=== PATIENT | male | born 1965 | race Caucasian/White ===

== ENCOUNTER 2021-04-20 08:13 | Outpatient (CLI) | payer OTHER, SELFPAY ==
--- NOTE | ~2021-04-20 | US_ITS ---
EXAMINATION: US joint non vasc comp RT DATE: 04/20/2021 08:32 INDICATION: Right lower limb pain. TECHNIQUE: Multiple grayscale and Doppler ultrasound images of the right lower limb were obtained. COMPARISON: None FINDINGS: In the popliteal fossa, there is a small York's cyst with volume of approximately 2 mL. IMPRESSION: 1. Small York's cyst. Reviewed, dictated and finalized at location A. IMPRESSION: 1. Small York's cyst.
== END 2021-04-20 08:14 | disposition home or self-care (01) ==
LOC: CHSIMG 08:15
PROVIDERS: PCP Nurse Practitioner Family; Visit Provider Nurse Practitioner Family
DX: M25.561 Pain in right knee (principal)
CPT/HCPCS: 76881

== ENCOUNTER 2021-04-28 11:19 | Outpatient (CLI) | payer OTHER, SELFPAY | END 2021-04-28 11:20 | disposition home or self-care (01) | PROVIDERS: PCP Family Medicine; Visit Provider Nurse Practitioner Family | DX: Z53.9 Procedure and treatment not carried out, unspecified reason (principal) | CPT/HCPCS: 99199 ==

== ENCOUNTER 2021-05-01 12:24 | Outpatient (CLI) | payer OTHER, SELFPAY ==
--- NOTE | ~2021-05-01 | XR_ITS ---
EXAMINATION: XR knee RT 2V DATE: 05/01/2021 12:51 INDICATION: Right knee pain. TECHNIQUE: 2 views of right knee were obtained. COMPARISON: None. FINDINGS: Bone alignment is normal. No fracture. There is mild osteoarthritis of patellofemoral ariel rtment. No knee joint effusion. IMPRESSION: 1. Mild right knee osteoarthritis. Reviewed, dictated and finalized at location A.
== END 2021-05-01 12:25 | disposition home or self-care (01) ==
LOC: CHSIMG 12:26
PROVIDERS: PCP Nurse Practitioner Family; Visit Provider Nurse Practitioner Family
DX: M25.561 Pain in right knee (principal)
CPT/HCPCS: 73560

== ENCOUNTER 2021-05-15 03:09 | Emergency (ER) | payer OTHER, SELFPAY ==
--- NOTE | 2021-05-15 03:18 | ED.NAVMDI ---
HPI - Nausea/Vomiting/Diarrhea General Chief complaint: Nausea/Vomiting/Diarrhea Stated complaint: Vomiting Time Seen by Provider: 05/15/21 03:22 Source: patient Mode of arrival: EMS Limitations: no limitations History of Present Illness HPI Narrative: 55-year-old man brought to the emergency department today after calling EMS because of vomiting. patient states that he started vomiting on his way to work yesterday and has had at least 3 episodes. States he has been unable to keep down any fluids much less any solid food and states he is not feeling well. He denies any black stools, bloody stools, blood in his vomitus, fever, chills, cough or cold symptoms, abdominal pain, dysuria, hematuria, or sick exposures. He works in a warehouse. MD elicited complaint: nausea and vomiting Onset (ago): day(s) (1) Description of vomiting: food contents and watery Associated nausea: Yes Associated abdominal pain: No Location of pain: none Exacerbating factors: eating Relieving factors: none Associated symptoms: nausea/vomiting Related Data Allergies Allergy/AdvReac Type Severity Reaction Status Date / Time NKDA Allergy Mild Other Uncoded 05/09/21 17:25 Review of Systems Review of Systems: All systems reviewed & are unremarkable except as noted in HPI and below Constitutional: Constitutional: Denies chills, Denies fever(s) and Denies weakness Eyes: Eyes: Denies change in vision and Denies photophobia ENT: Denies nasal congestion and Denies sore throat Cardiovascular: Cardiovascular: Denies chest pain and Denies radiating jaw, neck or arm pain Respiratory: Respiratory: Denies cough and Denies dyspnea Gastrointestinal: Gastrointestinal: Denies abdominal pain, Denies nausea and Denies vomiting Genitourinary: Genitourinary: Denies dysuria and Denies urinary frequency Musculoskeletal: Musculoskeletal: Denies arthralgias and Denies joint swelling Integumentary/Breasts: Skin/Breast: Denies pruritus, Denies erythema and Denies rash Neurologic: Denies vertigo, Denies dizziness, Denies syncope, Denies focal weakness and Denies numbness Endocrine: Endocrine: Denies polydipsia and Denies polyuria Hematologic/Lymphatic: Hematologic/Lymphatic: Denies easy bleeding and Denies easy bruising Allergic/Immunologic: Allergic/Immunologic: Denies lip swelling, Denies throat swelling and Denies tongue swelling [facility] Past Medical History Medical History Osteoarthritis of right knee Synovial cyst of popliteal space [York], right knee Family History Family History Father Hypertension Social History Social History Smoking status: Never smoker Alcohol intake: current Substance use: never Additional living arrangements comments: lives with his Additional occupation/education comments: employed Gender identity (if verbalized by the patient): Male Exam Const: General: healthy appearing and alert Orientation/consciousness: patient oriented x3 Limitations: no limitations Other: Mild acute distress. HENMT: Head: normal to inspection Ears: external ears normal, TM's normal bilaterally and EAC's normal General nose exam: Normal nares present Face and sinus: normal facial exam Mouth: Yes moist mucous membranes Throat: posterior oropharynx normal Eyes: Cornea: corneas normal Pupils: Equal, round and reactive pupils present EOM: EOMs intact bilaterally Resp: Effort & Inspection: normal respiratory effort and not labored Auscultation: clear to auscultation bilaterally, no rales, no rhonchi and no wheezes Cardio: Rate: regular rate Rhythm: regular rhythm Heart sounds: no murmurs GI: GI Palp: Yes Soft to palpation and No Tenderness to palpation present (GI) Auscultation: normal bowel sounds Skin: General skin exam: normal color, no jaundice and
[2021-05-15 03:20] VITALS: BP 133/90; PULSE 74; RESP 20; TEMP 36.7; O2SAT 100
--- NOTE | 2021-05-15 03:29 | ECG_ITS ---
Measurements Intervals [place] Rate: 68 P: 55 MN: 146 QRS: 52 QRSD: 87 T: 66 QT: 366 QTc: 391 Interpretive Statements SINUS RHYTHM BASELINE ARTIFACT- I, III, AVL NORMAL ECG Electronically Signed On 05-15-2021 8:16:29 CDT by Pedro Singh D.O.
[2021-05-15 03:30] VITALS: BP 140/75
[2021-05-15 03:35] VITALS: BP 136/88; PULSE 77
[2021-05-15] MEDS: ONDANSETRON INJ 4 MG/2 ML VIAL IV PUSH (03:39)
[2021-05-15 03:54] LABS: Basophils Absolute Auto 0.05 K/mm3 (0.00-0.10); Basophils Percent Auto 0.4 % (0.0-1.0); Eosinophils Absolute Auto 0.11 K/mm3 (0.02-0.50); Eosinophils Percent Auto 0.9 % (1.0-6.0); Hematocrit 45.2 % (40.0-54.0); Hemoglobin 15.3 g/dL (14.0-18.0); Immature Granulocyte Absolute 0.06 K/mm3 (0.00-0.00); Immature Granulocyte Percent A 0.5 % (0.0-0.0); Lymphocytes Absolute Auto 1.14 K/mm3 (1.10-4.50); Lymphocytes Percent Auto 9.7 % (18.0-42.0); Mean Corpuscular HGB Conc 33.8 g/dL (32.0-36.0); Mean Corpuscular Volume 85.6 fL (78.0-102.0); Mean Platelet Volume 8.9 fl (8.7-11.0); Monocytes Absolute Auto 0.47 K/mm3 (0.10-0.90); Neutrophils Absolute Auto 9.9 K/mm3 (1.7-7.2); Neutrophils Percent Auto 84.5 % (50.0-70.0); Platelet Count Result 228 K/mm3 (150-420); Red Blood Count 5.28 M/mm3 (4.70-6.10); Red Cell Distribution Width 13.8 % (11.6-14.4); White Blood Count 11.8 K/mm3 (4.8-10.8)
[2021-05-15] MEDS: PANTOPRAZOLE SODIUM IV 40 MG VIAL IV PUSH (04:07)
[2021-05-15 04:13] LABS: Alanine Aminotransferase 33 U/L (16-63); Albumin Level 3.7 g/dL (3.4-5.0); Alkaline Phosphatase 67 U/L (46-116); Anion Gap 8 mmol/L (8-16); Aspartate Amino Transferase 14 U/L (15-37); Bilirubin,Total 0.9 mg/dL (0.00-1.00); Blood Urea Nitrogen 13 mg/dL (7-18); Calcium 8.7 mg/dL (8.5-10.1); Carbon Dioxide 29 mmol/L (21-32); Chloride 103 mmol/L (98-108); Estimated CRCL calculation 92 ml/min; Estimated Glomerular Filt Rate > 60; Glucose 113 mg/dL (70-99); Lipase 72 U/L (73-393); Osmolality Calculated 291 mOsm/kg (285-295); Potassium 3.7 mmol/L (3.5-5.1); Sodium 140 mmol/L (136-145); Total Protein 7.2 g/dL (6.4-8.2)
[2021-05-15 04:18] LABS: Acetaminophen < 2 ug/mL (10-30); Salicylate < 0.2 mg/dL (2.8-20.0)
[2021-05-15] MEDS: SODIUM CHLORIDE 0.9% IV 1,000 ML 999 ML IV CONT (04:27)
[2021-05-15 04:41] LABS: Add Urine Microscopic? YES; Appearance Urine Clear (Clear); Bilirubin Urine Negative (Negative); Blood Urine Negative (Negative); Color Urine Light Yellow (Yellow); Glucose Urine UA Negative (Negative); Ketones Urine 1+ (Negative); Leukocyte Esterase Ur Negative LEU/UL (Negative); Nitrate Urine Negative (Negative); Protein Urine Negative (Negative); Urobilinogen Urine 0.2 mg/dL (0.2-1.0)
[2021-05-15 04:47] LABS: Amphetamine Screen Urine Negative (Negative); Bacteria Urine None seen /hpf; Barbiturate Screen Urine Negative (Negative); Benzodiazepines Screen Urine Negative (Negative); Cannabinoid Screen Urine Negative (Negative); Cocaine Screen Urine Negative (Negative); Methadone Screen Urine Negative (Negative); Opiate Screen Urine Negative (Negative); Phencyclidine Screen Urine Negative (Negative); RBC Urine None seen /hpf (0-2); Squamous Epithelial Cell Urine None seen /hpf (Few); WBC Urine None seen /hpf (0-3)
[2021-05-15 05:13] VITALS: BP 140/78; PULSE 78; RESP 18; TEMP 36.6; O2SAT 99
== END 2021-05-15 05:19 | disposition home or self-care (01) ==
PROVIDERS: Emergency Provider Emergency Medicine; PCP Nurse Practitioner Family
DX: R11.2 Nausea with vomiting, unspecified (principal)
CPT/HCPCS: 36415; 80053; 80307; 81001; 83690; 85025; 93005; 96361; 96374; 96375; 99283; 99284; C9113; J2405; J7030

== ENCOUNTER 2021-10-20 10:51 | Emergency (ER) | payer OTHER, SELFPAY ==
--- NOTE | ~2021-10-20 | XR_ITS ---
EXAMINATION: XR knee RT 3V EXAM DATE: 10/20/2021 12:06 INDICATION: Posterior Knee Pain/No Trauma . TECHNIQUE: Three projections of the right knee. Comparison is made to prior examination from 05/01/2021 . FINDINGS: No evidence osteochondral defect or joint body in the right knee joint. There are no acut e fractures or dislocations identified. There is no subcutaneous gas. Possible anterior subcutaneou s swelling. Some edema in Hoffa's fat pad. No joint effusion. There are no radiopaque foreign bodies. IMPRESSION: 1. Right knee exam without acute osseous findings. 2. Mild edema. Reviewed, dictated and finalized at location A. ANICAL ENGINEERING DRAFTSPERSON
[2021-10-20 11:40] VITALS: BP 162/86; PULSE 80; RESP 18; TEMP 36.6; O2SAT 99
--- NOTE | 2021-10-20 11:54 | ED.GENADULT ---
HPI - General Adult General Chief complaint: Extremity Injury, Lower Stated complaint: Not feeling well Time Seen by Provider: 10/20/21 11:54 Source: patient Mode of arrival: ambulatory Limitations: other ( Patient has a developmental delay.) History of Present Illness HPI narrative: 56-year-old male with developmental delay, recurrent right knee pain and swelling with questionable knee infection 6 months ago presents to the ER with -- right knee pain and swelling. The patient has been working long hours and his work involves lifting heavy things. No knee trauma. -- One episode of vomiting. No abdominal pain or diarrhea. Onset (ago): minute(s) ( Three days.) Location: lower extremity ( Right knee) Radiation: non-radiation Severity: moderate Severity scale (1-10): 5 Quality: aching Pain Consistency: constant Relieving factors: immobilization Exacerbating factors: movement Associated symptoms: nausea/vomiting Treatments prior to arrival: NSAID Related Data Allergies Allergy/AdvReac Type Severity Reaction Status Date / Time NKDA Allergy Mild Other Uncoded 10/20/21 11:53 Review of Systems Review of Systems: All systems reviewed & are unremarkable except as noted in HPI and below Constitutional: Constitutional: Reports as per HPI Eyes: Eyes: Reports as per HPI ENT: Reports system reviewed and no additional complaints, except as documented Cardiovascular: Cardiovascular: Reports as per HPI and Reports no additional cardiovascular complaints Respiratory: Respiratory: Reports as per HPI and Reports no additional respiratory complaints Gastrointestinal: Gastrointestinal: Reports as per HPI and Reports vomiting Musculoskeletal: Musculoskeletal: Reports no additional musculoskeletal complaints Integumentary/Breasts: Skin/Breast: Reports system reviewed and no additional complaints, except as docu Neurologic: Reports system reviewed and no additional complaints, except as documented Psychiatric: Psychiatric: Reports no additional psychiatric complaints Endocrine: Endocrine: Reports no additional endocrine complaints Hematologic/Lymphatic: Hematologic/Lymphatic: Reports no additional hematologic/lymphatic complaints Allergic/Immunologic: Allergic/Immunologic: Reports no additional allergic/immunologic complaints [facility] Past Medical History Medical History Osteoarthritis of right knee Synovial cyst of popliteal space [York], right knee Family History Family History Father Hypertension Social History Social History Smoking status: Never smoker Alcohol intake: current Alcohol use details: occasionally Substance use: never Additional living arrangements comments: lives with his Additional occupation/education comments: employed Gender identity (if verbalized by the patient): Male Exam Const: General: cooperative and healthy appearing HENMT: Head: normal to inspection Ears: hearing grossly normal bilaterally General nose exam: Normal external nose present Face and sinus: normal facial exam Mouth: Yes Normal oral and palatal mucosa present and Yes other ( extensive dental caries) Teeth and gingiva: caries Throat: posterior oropharynx normal Eyes: General: appearance normal, both eyes and all related structures EOM: EOMs intact bilaterally Neck: Neck: normal visual inspection Chest: Chest palpation & inspection: normal inspection of the chest Resp: Effort & Inspection: normal respiratory effort Cardio: Jugular venous distension: no JVD Palpation: normal PMI Rate: regular rate Rhythm: regular rhythm Heart sounds: S1 normal heart sound present and S2 normal heart sound present GI: Inspection: normal to inspection : General: Yes bimanual renal exam normal bilaterally Back/Spine/Pelvis: Back: no
[2021-10-20 12:14] LABS: Hemoglobin 14.9 g/dL (14.0-18.0); Mean Corpuscular HGB Conc 33.9 g/dL (32.0-36.0); Mean Corpuscular Hemoglobin 29.8 pg (27.0-31.0); Mean Platelet Volume 8.5 fl (8.7-11.0); Platelet Count Result 161 K/mm3 (150-420); Red Cell Distribution Width 13.1 % (11.6-14.4); White Blood Count 10.4 K/mm3 (4.8-10.8)
[2021-10-20 12:36] LABS: Alanine Aminotransferase 52 U/L (16-63); Albumin Level 3.6 g/dL (3.4-5.0); Alkaline Phosphatase 111 U/L (46-116); Anion Gap 7 mmol/L (8-16); Aspartate Amino Transferase 23 U/L (15-37); Bilirubin,Total 1.3 mg/dL (0.00-1.00); Blood Urea Nitrogen 11 mg/dL (7-18); Calcium 8.7 mg/dL (8.5-10.1); Carbon Dioxide 29 mmol/L (21-32); Chloride 101 mmol/L (98-108); Estimated CRCL calculation 85 ml/min; Estimated Glomerular Filt Rate > 60; Glucose 122 mg/dL (70-99); Osmolality Calculated 284 mOsm/kg (285-295); Potassium 3.6 mmol/L (3.5-5.1); Sodium 137 mmol/L (136-145); Total Protein 7.4 g/dL (6.4-8.2)
[2021-10-20 12:39] LABS: Band Neutrophils Percent 2 % (0-6); Basophils Percent Manual 0 % (0-1); Eosinophils Absolute Manual 0.41 K/mm3 (0.02-0.5); Eosinophils Percent Manual 4 % (1-6); Lymphocytes Absolute Manual 0.52 K/mm3 (1.1-4.5); Lymphocytes Percent Manual 5 % (18-44); Monocytes Absolute Manual 0.52 K/mm3 (0.1-0.90); Monocytes Percent Manual 5 % (3-9); Neutrophils Absolute Manual 8.94 K/mm3 (1.3-6.7); Neutrophils Percent Manual 84 % (46-73); Platelet Estimate Adequate (Adequate); Total Cells Counted 100
[2021-10-20] MEDS: KETOROLAC 30 MG/ML VIAL (*BKC) IM (13:04)
== END 2021-10-20 13:13 | disposition home or self-care (01) ==
PROVIDERS: Emergency Provider Internal Medicine Critical Care Medicine; PCP Nurse Practitioner Family
DX: M25.561 Pain in right knee (principal)
CPT/HCPCS: 36415; 73562; 80053; 85025; 96372; 99283; J1885

== ENCOUNTER 2021-10-24 10:46 | Outpatient (CLI) | payer OTHER, SELFPAY ==
--- NOTE | ~2021-10-24 | XR_ITS ---
XR abdomen/kub 1V 10/24/2021 11:17 Indication: Noninfected gastroenteritis and colitis. Procedure: KUB Comparison: No prior studies for comparison. Findings: Bowel gas pattern is nonobstructive. Moderate colonic fecal loading. There is a right renal stone measuring approximately 8 mm. Lung bases are unremarkable. No acute osseous abnormality. Impression: 1: Right nephrolithiasis. Reviewed, dictated and finalized at location A. ING ROOM HELPER Impression: 1: Right nephrolithiasis.
[2021-10-24 11:03] LABS: Hematocrit 46.7 % (40.0-54.0); Hemoglobin 15.5 g/dL (14.0-18.0); Mean Corpuscular HGB Conc 33.2 g/dL (32.0-36.0); Mean Corpuscular Hemoglobin 29.3 pg (27.0-31.0); Mean Corpuscular Volume 88.3 fL (78.0-102.0); Mean Platelet Volume 8.3 fl (8.7-11.0); Platelet Count Result 207 K/mm3 (150-420); Red Blood Count 5.29 M/mm3 (4.70-6.10); Red Cell Distribution Width 12.8 % (11.6-14.4); White Blood Count 12.4 K/mm3 (4.8-10.8)
[2021-10-24 11:27] LABS: Band Neutrophils Percent 0 % (0-6); Eosinophils Absolute Manual 0.49 K/mm3 (0.02-0.5); Eosinophils Percent Manual 4 % (1-6); Lymphocytes Absolute Manual 1.48 K/mm3 (1.1-4.5); Lymphocytes Percent Manual 12 % (18-44); Monocytes Absolute Manual 0.62 K/mm3 (0.1-0.90); Monocytes Percent Manual 5 % (3-9); Neutrophils Absolute Manual 9.79 K/mm3 (1.3-6.7); Neutrophils Percent Manual 79 % (46-73); Platelet Estimate Adequate (Adequate); Total Cells Counted 100
--- NOTE | 2021-10-24 11:40 | PC.NURSE ---
Here for OP IV fluids
[2021-10-24 11:51] LABS: Alanine Aminotransferase 103 U/L (16-63); Albumin Level 3.3 g/dL (3.4-5.0); Alkaline Phosphatase 169 U/L (46-116); Anion Gap 9 mmol/L (8-16); Aspartate Amino Transferase 26 U/L (15-37); Bilirubin,Total 0.8 mg/dL (0.00-1.00); Blood Urea Nitrogen 16 mg/dL (7-18); Carbon Dioxide 30 mmol/L (21-32); Chloride 99 mmol/L (98-108); Estimated Glomerular Filt Rate > 60; Glucose 111 mg/dL (70-99); Magnesium 2.1 mg/dL (1.8-2.4); Osmolality Calculated 288 mOsm/kg (285-295); Potassium 4.4 mmol/L (3.5-5.1); Sodium 138 mmol/L (136-145); Total Protein 7.6 g/dL (6.4-8.2)
[2021-10-24] MEDS: SODIUM CHLORIDE 0.9% IV 1,000 ML 250 ML IVPB (11:58)
[2021-10-24] MEDS: ONDANSETRON INJ 4 MG/2 ML VIAL IV PUSH (11:59)
--- NOTE | 2021-10-24 12:16 | PC.NURSE ---
Ice chips given
--- NOTE | 2021-10-24 13:59 | PC.NURSE ---
fluids continue, no emesis, unable to sleep, call light in reach
== END 2021-10-24 10:47 | disposition home or self-care (01) ==
LOC: CHSLAB 11:21 → CHSTREATRM 11:32
PROVIDERS: PCP Nurse Practitioner Family; Visit Provider Nurse Practitioner Family
DX: K52.9 Noninfective gastroenteritis and colitis, unspecified (principal); N39.0 Urinary tract infection, site not specified; R82.90 Unspecified abnormal findings in urine
CPT/HCPCS: 36415; 74018; 80053; 83735; 85025; 87077; 87086; 87088; 87186; 96360; 96361; 96374; J2405; J7030

== ENCOUNTER 2021-10-29 08:31 | Outpatient (CLI) | payer OTHER, SELFPAY ==
--- NOTE | ~2021-10-29 | US_ITS ---
EXAMINATION: US abdomen limited EXAM DATE: 10/29/2021 08:59 INDICATION: R74.8 - Abnormal levels of other serum enzymes TECHNIQUE: Multiple grayscale and Doppler images of the abdomen right upper quadrant were obtained (b y a technologist who performed the scan) and subsequently reviewed. There is no prior study for candelaria abraham. FINDINGS: The pancreatic head and body are normal in appearance. The pancreatic tail is not visualized. The l iver has normal echogenicity and contour. There are no focal liver lesions identified. There is no evidence of intrahepatic biliary duct dilation. Portal venous flow was seen in the hepatopedal, nor mal direction and has normal Doppler waveform. No right-sided hydronephrosis. Common bile duct measures 3 mm, which is normal. The gallbladder wall is normal in thickness, with ex pected amount of distention. No sonographic evidence of pericholecystic fluid. There is no cholelit hiases. Technologist performing exam reports patient did not demonstrate sonographic Hamlin's sign. Please note that this sign is less reliable in patients who have received pain medication. IMPRESSION: 1. Unremarkable abdominal ultrasound exam. Reviewed, dictated and finalized at location A. LLIGENCE DIRECTOR
== END 2021-10-29 08:32 | disposition home or self-care (01) ==
LOC: CHSIMG 08:33
PROVIDERS: PCP Family Medicine; Visit Provider Nurse Practitioner Family
DX: R74.8 Abnormal levels of other serum enzymes (principal)
CPT/HCPCS: 76705

== ENCOUNTER 2023-04-16 16:32 | Outpatient (CLI) | payer OTHER, SELFPAY ==
--- NOTE | ~2023-04-16 | XR_ITS ---
EXAMINATION: XR elbow LT 2V DATE: 04/16/2023 16:54 INDICATION: Mechanical injury one half weeks prior presenting with anterior left elbow pain TECHNIQUE: Anteroposterior, two oblique and lateral views of the left elbow were obtained. COMPARISON: None. FINDINGS: Alignment is normal. No fracture. Joint spaces are normal. There is mild displacement of the anterior but not the posterior fat pad suggesting a small elbow joint effusion. Mild soft tissue swelling pos terior to the proximal left forearm. IMPRESSION: 1. Possible small left elbow joint effusion. No osseous abnormality. Reviewed, dictated and finalized at location A.
== END 2023-04-16 16:33 | disposition home or self-care (01) ==
LOC: CHSIMG 16:34
PROVIDERS: PCP Nurse Practitioner Family; Visit Provider Nurse Practitioner Family
DX: M25.522 Pain in left elbow (principal)
CPT/HCPCS: 73070

== ENCOUNTER 2024-12-14 09:17 | Outpatient (CLI) | payer OTHER, SELFPAY ==
--- NOTE | 2024-12-16 13:38 | WPDHOLTEREM ---
Holter/Event Monitor Holter/Event Monitor Date of procedure: 12/14/24 Holter/Event Procedure: 24 Hr Holter Monitor Conclusion: 1. 24 hour holter monitor on 12/14/24. 2. Underlying rhythm is sinus rhythm. HR range 43-141 bpm; average HR 75 bpm. HR at 43 bpm was at 05:05. HR at 141 bpm was at 11:13. 3. There are 7 premature supraventricular complexes and 1 supraventricular couplet. No supraventricular tachycardia. 4. There are 4 premature ventricular complexes. No ventricular tachycardia. 5. No significant pauses greater than 2 seconds. 6. No symptoms available for correlation.
== END 2024-12-14 09:18 | disposition home or self-care (01) ==
LOC: CHSCARD 09:19
PROVIDERS: PCP Family Medicine; Visit Provider Family Medicine
DX: R55 Syncope and collapse (principal)
CPT/HCPCS: 93225; 93226

== ENCOUNTER 2024-12-16 11:25 | Outpatient (CLI) | payer OTHER, SELFPAY ==
--- NOTE | 2024-12-16 11:29 | ECHO_ITS ---
Patient Info Name: Bryce Tristan Age: 59 years : 1965 Gender: Male Ht: 67 in Wt: 175 lbs BSA: 1.95 m2 HR: 97 bpm BP: 139 / 87 mmHg Heart Rhythm: Sinus Rhythm Technical Quality: Excellent Exam Date: 12/16/2024 12:32 PM Exam Location: Echo Lab Patient Status: Outpatient Admit Date: 12/16/2024 Staff Ordering Physician: Ander Macias DO Dictating Transcribing Machine Servicer: Zoey Yang RDCS Attending Provider: Ander Macias DO Referring Physician: Colleen SERRATO; Exam Type: CA echo doppler color flow Study Info Complete two-dimensional, color flow and Doppler transthoracic echocardiogram is performed. Summary 1. Complete two-dimensional, color flow and Doppler transthoracic echocardiogram is performed. 2. Left ventricular chamber dimension is normal. 3. Left ventricular systolic function is normal, estimated at 65-70%. 4. The left ventricular diastolic function is normal. 5. E/e' 9 is minimally elevated. 6. There is trace mitral valve regurgitation. 7. There is trace tricuspid valve regurgitation. 8. Mild pulmonary hypertension, estimated pulmonary arterial systolic pressure is 41 mmHg. 9. There is trace pulmonic regurgitation. Left Ventricle E/e' 9 is minimally elevated. Left ventricular chamber dimension is normal. Left ventricular systolic function is normal, estimated at 65-70%. The left ventricular diastolic function is normal. Right Ventricle Right ventricular systolic function is normal and with normal TAPSE 2.4 cm. Right ventricular chamber dimension is normal. Left Atria Left atrial chamber dimension is normal. Right Atria Right atrial chamber dimension is normal. Aortic Valve The aortic valve is trileaflet. There is no aortic valve stenosis. There is no aortic valve regurgitation. Pulmonic Valve There is trace pulmonic regurgitation. Mitral Valve There is no mitral valve stenosis. There is trace mitral valve regurgitation. Tricuspid Valve There is trace tricuspid valve regurgitation. Mild pulmonary hypertension, estimated pulmonary arterial systolic pressure is 41 mmHg. Pericardium/Pleural There is no pericardial effusion. Inferior Vena Cava Normal inferior vena cava with >50% collapse upon inspiration consistent with normal right atrial pressure, 5 mmHg. Aorta The aortic root size at the sinus of Valsalva is normal. Left Ventricular Outflow Tract Name Value Normal LVOT 2D LVOT Diameter 2.2 cm LVOT Doppler LVOT Peak Velocity 91 cm/s LVOT Peak Gradient 3 mmHg LVOT Mean Gradient 0 mmHg LVOT VTI 17 cm LVOT VTI/AV VTI Ratio 0.8 LVOT Stroke Volume 62 ml Pulmonic Valve Name Value Normal PV Doppler PV Peak Velocity 112 cm/s PV Peak Gradient 5 mmHg PV Regurgitation Doppler [place] Peak End Diastolic Velocity 96 cm/s Mitral Valve Name Value Normal MV Doppler MV Peak Gradient 2 mmHg MV Mean Gradient 1 mmHg MV Decel [place] 247 cm/s2 MV PHT 66 ms MV Area (PHT) 3.3 cm2 4.0-5.0 MV Area (Cont Eq VTI) 2.9 cm2 MV Diastolic Function MV E Peak Velocity 56 cm/s MV A Peak Velocity 71 cm/s MV E/A 0.8 MV Decel Time 228 ms Tricuspid Valve Name Value Normal TV Regurgitation Doppler TR Peak Velocity 301 cm/s TR Peak Gradient 36 mmHg Estimated PAP/RSVP RA Pressure 5 mmHg <=5 PA Systolic Pressure 41 mmHg <36 RV Systolic Pressure 41 mmHg <36 Aortic Valve Name Value Normal AV Doppler AV Peak Velocity 104 cm/s AV Peak Gradient 4 mmHg AV Mean Gradient 3 mmHg AV VTI 22 cm AV Area (Cont Eq VTI) 2.9 cm2 >=3.0 AV Area (Cont Eq Kong) 3.2 cm2 AV V1/V2 Ratio 0.87 AV Regurgitation 2D LVOT Area 3.6 cm2 Ventricles Name Value Normal LV Dimensions 2D/MM IVS Diastolic Thickness (2D) 0.7 cm 0.6-1.0 LVID Diastole (2D) 5.3 cm 4.2-5.8 LVIW Diastolic Thickness (2D) 0.8 cm 0.6-1.0 LVID Systole (2D) 3.8 cm 2.5-4.0 LVOT Diameter 2.2 cm LV Mass (2D Cubed) 133.62 g 88.00-224.00 LV Mass Index (2D Cubed) 68 g/m2 49-115 Relative Wall Thickness (2D) 0.30 LV Fractional Shortening/Ejection Fraction 2D/MM LV Fractional Shortening (2D) 28 % 25-43 LV EF (2D Teicholz) 53 % 52-72 LV Diastolic Volume (4C MOD) 162 ml LV EF (4C MOD) 57 % LV Diastolic Volume (2C MOD) 130 ml LV EF (2C MOD) 62 % LV Diastolic Volume (BP MOD) 149 ml 62-150 LV Diastolic Volume Index (BP MOD) 76 ml/m2 34-74 LV Systolic Volume (BP MOD) 62 ml 21-61 LV Systolic Volume Index (BP MOD) 32 ml/m2 11-31 LV EF (BP MOD) 59 % 52-72 LV Diastolic Length (4C) 8.5 cm LV Systolic Length (4C) 7.3 cm LV Stroke Volume (4C MOD) 92 ml LV CO (BP MOD) 5.9 l/min LV CI (BP MOD) 3.0 l/min/m2 Atria Name Value Normal LA Dimensions LA Volume (4C A-L) 54 ml LA Volume (BP A-L) 48 ml RA Dimensions RA Area (4C) 19.1 cm2 <=18.0 Report Signatures
== END 2024-12-16 11:26 | disposition home or self-care (01) ==
LOC: CHSIMG 11:27
PROVIDERS: PCP Family Medicine; Visit Provider Family Medicine
DX: I50.9 Heart failure, unspecified (principal); I27.20 Pulmonary hypertension, unspecified
CPT/HCPCS: 93306

== ENCOUNTER 2025-01-18 10:39 | Outpatient (CLI) | payer OTHER, SELFPAY ==
--- NOTE | ~2025-01-18 | XR_ITS ---
Cervical Spine: AP, lateral, open-mouth views Clinical History: Pain Findings: The normal lordotic curve is maintained. No fracture or subluxation seen. There is moderate degenerative disc narrowing at C4-C5. There is advanced degenerative disc narrowing at C6-C7. There are mild to moderate facet joint degenerative changes.. Pre-vertebral soft tissues are unremarkable. Impression: Moderate degenerative spondylosis overall, as above. Reviewed, dictated and finalized at location . CT CONTROL AIDE Impression: Moderate degenerative spondylosis overall, as above.
--- OUTSIDE RECORDS SUMMARY | 2025-01-18 10:53 | XMS_ITS | Referral Summary ---
Author Organization [facility] Address [address] [place] [address] Care Team Providers Care Torpedo Man Name Role Phone Ander Macias DO Unavailable [phone] Ander Macias DO Primary Care Provider Encounters Date Type Department Care Team Description 01/04/2025 8:20 AM SATURATOR OPERATOR Office Visit [facility] - [facility] ENT [address] [facility] 11th [place] [address] [place] [address] Vikram Chan MD Nasal obstruction (Primary Dx); Nasal valve collapse; Nasal septal deviation; Open fracture of nasal septum, sequela; Late effect of closed fracture of facial bone (CMS/HCC) (HCC); Closed fracture of nasal bone, sequela; Hypertrophy of inferior nasal turbinate 12/06/[address] [facility] [facility] [address] [facility] 11th [place] [address] [place] [phone] Ita Ward MS 11/17/2024 Telephone [facility] [address] [place] [address] 6th [place] [address] [place] [address] Hubert Rodgers MD Scheduling Appointments; Follow-up 11/16/2024 Telephone [facility] [address] [place] [address] 1st [place] [address] Marleni Frank MD Patient Education 11/13/2024 2:51 PM SATURATOR OPERATOR - 11/16/2024 3:35 PM SATURATOR OPERATOR Hospital Encounter [facility] [address] [place] [address] Samantha Sharma MD Sensing, [place] Enrique DO Closed fracture of cervical vertebra, unspecified cervical vertebral level, initial encounter (HCC) (Primary Dx); Fall, initial encounter; Closed fracture of facial bone due to fall, initial encounter ([facility]) Discharge Disposition: Discharge to home or self care 11/13/2024 2:08 PM SATURATOR OPERATOR - 11/13/2024 11:59 PM SATURATOR OPERATOR Hospital Encounter [facility], Room R Discharge Disposition: Discharge to home or self care 11/13/2024 10:32 AM SATURATOR OPERATOR - 11/13/2024 11:59 PM SATURATOR OPERATOR Hospital Encounter [facility] Emergency, Room R Discharge Disposition: Discharge to home or self care 11/13/2024 Ophth Exam [facility] [address] [place] [address] [place] [address] Vikram Shelby MD 11/13/2024 10:52 AM SATURATOR OPERATOR - 11/13/2024 2:09 PM [facility] Emergency [facility] Emergency Department [address] [place] [address] Tim Prater MD Closed nondisplaced fracture of third cervical vertebra, unspecified fracture morphology, initial encounter ([facility]) (Primary Dx); Open fracture of facial bone due to fall, initial encounter ([facility]); Vasovagal syncope Discharge Disposition: Discharge to not defined facility from Last 3 Months Allergies No known active allergies Medications acetaminophen (TYLENOL) 325 mg tabletIndicatio ns:Pain Take 2 tablets (650 mg total) by mouth every 6 (six) hours 30 tablet Active Additional Information Patient not taking.Reported on 01/04/2025 polyethylene glycol (MIRALAX) 17 gram/dose bulk powderIndicatio ns:constipation Take 17 g by mouth daily 510 g 4 Active senna-docusate (PERICOLACE) 8.6-50 mgIndications:c onstipation Take 1 tablet by mouth 2 (two) times a day 30 tablet Active Additional Information Patient not taking.Reported on 01/04/2025 sodium chloride (OCEAN) 0.65 % nasal spray Administer 2 sprays into each nostril 4 (four) times a day 15 mL Active Additional Information Patient not taking.Reported on 01/04/2025 oxyCODONE (ROXICODONE) 5 mg immediate release tabletIndicatio ns:Pain Take 1 tablet (5 mg total) by mouth every 4 (four) hours as needed for pain 10 tablet Active Additional Information Patient not taking.Reported on 01/04/2025 Active Problems Problem Noted Date Diagnosed Date Discharge planning issues 11/15/2024 Assessment & Plan (11/16/2024 10:15 AM SATURATOR OPERATOR): 11/15 MRI 11/16 Patient is medically stable for discharge, /CM updated. Discharge pending mobile rx and ride from family Health Insurance Coverage: [employer] Prescription Coverage: Yes Pharmacy: No Pharmacies ListedCM intake pending Needs assistance with community resources 2023 Assessment & Plan (11/15/2024 12:18 PM SATURATOR OPERATOR): 11/15 tasked for PCP in outpatient for TTE. Syncope most liekly vasovagal but will look at cardiac etiologies. Orbital fracture ([facility]) 11/14/2024 Assessment & Plan (11/15/2024 6:45 AM SATURATOR OPERATOR): - Imaging Fractures: left lateral orbital wall, bilateral nasal bone, anterior nasal septum, right nasal maxillary suture, anterior wall of the right maxillary sinus, comminuted ethmoidal lamina w/ intra orbital air -Ophthalmology consult in the ED, exam reassuring for intact vision, no globe injuries requiring urgent repair, no evidence of entrapment, no evidence of orbital compartment syndrome. - HOB elevation, open-mouth sneezing, no nose-blowing - cool compress / ice pack on periorbital region x 5-10 minutes q30 minutes Follow Up: Outpatient evaluation in ophthalmology clinic in 1-2 weeks for repeat dilated exam. In the meantime, return precautions for worsening vision, increased pain, or N/V. - Notify ophthalmology of any new or worsening eye or visual symptoms including worsening vision, eye pain, redness, photosensitivity, discharge, or new flashes of light or showers of floaters Fracture of cervical vertebrae, multiple (CMS/HC C) 11/14/2024 Overview (11/14/2024): Anterioinferior corner fractures C3 and C5 VB Assessment & Plan (11/15/2024 12:13 PM SATURATOR OPERATOR): #Anterior inferior corner fractures of C3 and C5 vertebral bodies -Orthopedic spine consult - Nano Marie cervical collar at all times Follow Up not yet scheduled but will be at [facility] Facial fracture 11/14/2024 Assessment & Plan (11/15/2024 6:47 AM SATURATOR OPERATOR): - Imaging Fractures: left lateral orbital wall, bilateral nasal bone, anterior nasal septum, right nasal maxillary suture, anterior wall of the right maxillary sinus, comminuted ethmoidal lamina w/ intra orbital air - ENT face c/s - Elevate HOB - No nose blowing, no straining, no heavy lifting greater than 10lbs, open mouth sneezing. - Scheduled stool softeners Patient Discharge Instructions: Multiple Facial fractures You were seen for a multiple facial fracture You will need to follow up in the ENT facial plastics clinic within 1 week to discuss possible operative repair of your fracture. Until you see us in clinic or the operating room, please - Take your full course of antibiotics (typically Augmentin x 7 days) if prescribed - Do not perform any heavy lifting (>10 lbs), and do not strain. Use stool softeners as needed. You may be prescribed these or obtain these over the counter at your local pharmacy. - Do NOT blow your nose. You may use nasal saline spray or ocean spray as needed. - Sneeze with your mouth open - Use tylenol 650 mg every 6 hours to help with pain. You can alternate between tylenol and ibuprofen if you need additional pain control ENT Facial Plastics Clinic: Call [phone] to make an appointment. Our offices are located at [facility] [address] [facility] [address] [place] [address] OR [facility] [address] [place] [address] Fall 11/14/2024 Assessment & Plan (11/16/2024 6:27 AM SATURATOR OPERATOR): - Syncopal fall after donating blood today, plus HS, plus LOC. Endorses history of lightheadedness - OSVS 11/15 negative - TTE outpatient Fall, initial encounter 11/13/2024 Social History Tobacco Use Types Packs/Day Years Used Date Smoking Tobacco: Never Tobacco Cessation:Counseling Given: Not Answered Personal Safety Answer Date Recorded Have you ever been in or are you currently in a harmful physical or emotional relationship or is someone making you feel afraid or unsafe? Denies 11/14/2024 Sex and Gender Information Value Date Recorded Sex Assigned at Not on file Legal Sex Male 10:00 AM SATURATOR OPERATOR Gender Identity Not on file Sexual Orientation Not on file Last Filed Vital Signs Vital Sign Reading Time Taken Comments Blood Pressure 117/74 11/16/2024 12:09 PM SATURATOR OPERATOR Pulse 89 11/16/2024 12:09 PM SATURATOR OPERATOR Temperature 36.7 C (98.1 F) 11/16/2024 12:09 PM SATURATOR OPERATOR Respiratory Rate 18 11/16/2024 12:09 PM SATURATOR OPERATOR Oxygen Saturation 100% 11/16/2024 12:09 PM SATURATOR OPERATOR Inhaled Oxygen Concentration - - Weight 75.8 kg (167 lb) 11/14/2024 2:30 AM SATURATOR OPERATOR Height 172.7 cm (5' 7.99 ) 11/14/2024 2:30 AM CS T Body Mass Index 25.4 11/14/2024 2:30 AM SATURATOR OPERATOR Plan of Treatment Not on file Procedures Procedure Name Priority Date/Time Associated Diagnosis Comments EGFR Routine 11/15/2024 10:07 PM SATURATOR OPERATOR BASIC METABOLIC PANEL Routine 11/15/2024 10:07 PM SATURATOR OPERATOR CBC WITHOUT DIFFERENTIAL Routine 11/15/2024 10:07 PM SATURATOR OPERATOR MAGNESIUM Routine 11/15/2024 10:07 PM SATURATOR OPERATOR PHOSPHORUS Routine 11/15/2024 10:07 PM SATURATOR OPERATOR XR SCOLIOSIS AP LAT ED Urgent/IP Urgent 11/15/2024 8:40 AM SATURATOR OPERATOR EGFR Routine 11/14/2024 10:11 PM SATURATOR OPERATOR BASIC METABOLIC PANEL Routine 11/14/2024 10:11 PM SATURATOR OPERATOR CBC WITHOUT DIFFERENTIAL Routine 11/14/2024 10:11 PM SATURATOR OPERATOR MAGNESIUM Routine 11/14/2024 10:11 PM SATURATOR OPERATOR PHOSPHORUS Routine 11/14/2024 10:11 PM SATURATOR OPERATOR URINALYSIS AND REFLEX TO MICROSCOPIC AND CULTURE Routine 11/14/2024 4:39 PM SATURATOR OPERATOR XR ABDOMEN AP 1 VIEW ED Urgent/IP Urgent 11/14/2024 1:45 PM SATURATOR OPERATOR MRI CERVICAL SPINE WO CONTRAST ED 11/14/2024 1:56 AM SATURATOR OPERATOR URINALYSIS AND REFLEX TO MICROSCOPIC AND CULTURE STAT 11/14/2024 12:[address] THORACIC AND LUMBAR SPINE WO CONTRAST ED Urgent/IP Urgent 11/13/2024 11:00 PM SATURATOR OPERATOR XR CHEST 1 VIEW ED 11/13/2024 5:09 PM SATURATOR OPERATOR XR SPINE LUMBAR 2 OR 3 VIEWS ED 11/13/2024 5:08 PM SATURATOR OPERATOR XR PELVIS 1 OR 2 VIEWS ED 11/13/2024 5:08 PM SATURATOR OPERATOR XR SPINE THORACIC 3 VIEWS ED 11/13/2024 5:08 PM SATURATOR OPERATOR XR SPINE CERVICAL 2 OR 3 VIEWS ED Urgent/IP Urgent 11/13/2024 5:08 PM SATURATOR OPERATOR TYPE AND SCREEN STAT 11/13/2024 4:23 PM SATURATOR OPERATOR PROTIME-INR STAT 11/13/2024 4:23 PM SATURATOR OPERATOR APTT STAT 11/13/2024 4:23 PM SATURATOR OPERATOR ED LACERATION REPAIR Routine 11/13/2024 1:[address] CERVICAL SPINE WO CONTRAST ED 11/13/2024 11:[address] FACIAL BONES WO CONTRAST ED 11/13/2024 11:[address] HEAD WO CONTRAST ED 11/13/2024 1 1:55 AM SATURATOR OPERATOR EGFR STAT 11/13/2024 11:17 AM SATURATOR OPERATOR DIFFERENTIAL AUTO STAT 11/13/2024 11: 17 AM SATURATOR OPERATOR MAGNESIUM Routine 11/13/2024 11:17 AM SATURATOR OPERATOR COMPREHENSIVE METABOLIC PANEL STAT 11/13/2024 11:17 AM SATURATOR OPERATOR CBC WITH AUTO DIFFERENTIAL STAT 11/13/2024 11:17 AM SATURATOR OPERATOR ECG 12-LEAD Routine 11/13/2024 10:50 AM SATURATOR OPERATOR from Last 3 Months Results * eGFR (11/15/2024 10:07 PM SATURATOR OPERATOR) eGFR 70 >=60 mL/min/1. 73 m2 Comment: Interpretive Data Reference Interval Normal >/= 90 mL/min/1.73m2 Mildly decreased* 60 - 89 mL/min/1.73m2 Mildly to moderately decreased 45 - 59 mL/min/1.73m2 Moderately to severely decreased 30 - 44 mL/min/1.73m2 Severely decreased 15 - 29 mL/min/1.73m2 Kidney Failure < 15 mL/min/1.73m2 *Relative to young adult level Estimated glomerular filtration rate is determined by the 2020 CKD-EPI equation recommended by the National Kidney Foundation (A Unifying Approach to GFR Estimation: Recommendations of the NKF-ASK Task Force on Reassessing the Inclusion of Race in Diagnosing Kidney Disease, JASN 2020). The CKD-EPI equation should not be used for patients with unstable renal function and has not been validated in children and those over 70. Current interpretive data was last reviewed 2021. Blood 11/15/2024 10:0 7 PM SATURATOR OPERATOR 11/15/2024 10:20 PM SATURATOR OPERATOR [facility] Sensing DO LAB BLOOD ORDERABLES Final Result [facility] Department [place] [address] * (ABNORMAL) CBC without differential (11/15/2024 10:07 PM SATURATOR OPERATOR) WBC 9.3 3.8 - 9.9 K/cumm Hgb 10.5(L) 13.0 - 17.5 g/dL [facility] Hct 33.4(L) 38.9 - 50.3 % [facility] Plt 259 150 - 400 K/cumm [facility] MPV 9.5 9.1 - 12.3 fL [facility] RBC 4.24(L) 4.30 - 5.80 M/cumm [facility] MCV 78.8(L) 81.3 - 96.4 fL [facility] MCH 24.8(L) 27.1 - 33.3 pg [facility] MCHC 31.4(L) 32.3 - 35.7 g/dL [facility] RDW CV 15.3(H) 11.1 - 14.9 % [facility] RDW SD 43.4 35.7 - 48.1 fL [facility] NRBC abs 0.00 0.00 - 0.01 K/cumm [facility] Blood 11/15/2024 10:0 7 PM SATURATOR OPERATOR 11/15/2024 10:21 PM SATURATOR OPERATOR [place] Enrique Sensing DO LAB BLOOD ORDERABLES Final Result Performing Organization Address City/[facility]/ZIP Co de Phone Number [facility] [place] [address] * Phosphorus (11/15/2024 10:07 PM SATURATOR OPERATOR) [facility] Phosphorus, pl 3.8 2.3 - 4.5 mg/dL Blood 11/15/2024 10:0 7 PM SATURATOR OPERATOR 11/15/2024 10:20 PM SATURATOR OPERATOR [facility] Sensing DO LAB BLOOD ORDERABLES Final Result Performing Organization Address City/[facility]/ZIP Co de Phone Number [facility] [address] * Magnesium (11/15/2024 10:07 PM SATURATOR OPERATOR) [facility] Magnesium 2.0 1.4 - 2.5 mg/dL Blood 11/15/2024 10:0 7 PM SATURATOR OPERATOR 11/15/2024 10:20 PM SATURATOR OPERATOR [facility] Sensing DO LAB BLOOD ORDERABLES Final Result Performing Organization Address City/[facility] [place] [address] * Basic metabolic panel (11/15/2024 10:07 PM SATURATOR OPERATOR) [facility] Sodium 138 135 - 145 mmol/L Potassium, pl 4.2 3.3 - 4.9 mmol/L [facility] Chloride 101 97 - 110 mmol/L [facility] CO2 29 22 - 32 mmol/L [facility] Anion gap 8 2 - 15 mmol/L [facility] BUN 19 6 - 25 mg/dL [facility] Creatinine 1.20 0.80 - 1.30 mg/dL [facility] Glucose 113 70 - 199 mg/dL [facility] Comment: Interpretive Data Fasting glucose >/= 126 mg/dl is diagnostic for diabetes. Fasting is defined as no caloric intake for at least 8 hours. Fasting glucose between 100 mg/dl to 125 mg/dl is diagnostic of prediabetes. In a patient with classic symptoms of hyperglycemia or hyperglycemic crisis, a random glucose >/= 200 mg/dl is diagnostic for diabetes. In the absence of unequivocal hyperglycemia, results should be confirmed by repeat testing. The classification and Diagnosis of Diabetes Diabetes Care 2021; 46: S19-S40. Current interpretive data was last revised 2022. Calcium 9.7 8.5 - 10.3 mg/dL [facility] Blood 11/15/2024 10:0 7 PM SATURATOR OPERATOR 11/15/2024 10:20 PM SATURATOR OPERATOR us [place] Enrique [facility] DO LAB BLOOD ORDERABLES Final Result [facility] Department [place] [address] * XR Scoliosis Ap and Lateral (11/15/2024 8:40 AM SATURATOR OPERATOR) Anatomical Region Laterality Modality Spine N/A Computed Radiogr aphy 11/15/2024 11:0 9 AM SATURATOR OPERATOR Impressions 11/15/2024 11:54 AM SATURATOR OPERATOR 1. Unchanged anterior inferior corner fractures of C3 and C5. 2. Mild multilevel degenerative disc disease of the thoracolumbar spine with mild anterior sagittal imbalance. Dictated by: Jannet George MD The radiology attending physician has personally reviewed this study, and had reviewed and/or edited this written report and agrees with it. Electronically signed by: Zander Melendez M.D. Narrative 11/15/2024 11:54 AM SATURATOR OPERATOR EXAMINATION: XR SCOLIOSIS AP AND LATERAL HISTORY: C3 and C5 corner fractures COMPARISON: 11/13/2024 cervical spine radiographs, MRI 11/14/2024 FINDINGS: Standing frontal and lateral radiographs of the entire spine were obtained using the EOS system. Unchanged mildly displaced anterior inferior corner fractures of C3 and C5. Mild prevertebral soft tissue swelling. No new acute compression fracture. No scoliosis. No pelvic obliquity. No significant coronal imbalance. Mild anterior sagittal imbalance. Mild straightening of normal thoracic kyphosis. Mild multilevel degenerative disc disease of the thoracolumbar spine. Procedure Note Zander Melendez MD - 11/15/2024 EXAMINATION: XR SCOLIOSIS AP AND LATERAL HISTORY: C3 and C5 corner fractures COMPARISON: 11/13/2024 cervical spine radiographs, MRI 11/14/2024 FINDINGS: Standing frontal and lateral radiographs of the entire spine were obtained using the EOS system. Unchanged mildly displaced anterior inferior corner fractures of C3 and C5. Mild prevertebral soft tissue swelling. No new acute compression fracture. No scoliosis. No pelvic obliquity. No significant coronal imbalance. Mild anterior sagittal imbalance. Mild straightening of normal thoracic kyphosis. Mild multilevel degenerative disc disease of the thoracolumbar spine. IMPRESSION: 1. Unchanged anterior inferior corner fractures of C3 and C5. 2. Mild multilevel degenerative disc disease of the thoracolumbar spine with mild anterior sagittal imbalance. Dictated by: Jannet George MD The radiology attending physician has personally reviewed this study, and had reviewed and/or edited this written report and agrees with it. Electronically signed by: Zander Melendez M.D. [facility] DO IMG XR PROCEDURES Fin al Result * eGFR (11/14/2024 10:11 PM SATURATOR OPERATOR) eGFR 86 >=60 mL/min/1. 73 m2 Comment: Interpretive Data Reference Interval Normal >/= 90 mL/min/1.73m2 Mildly decreased* 60 - 89 mL/min/1.73m2 Mildly to moderately decreased 45 - 59 mL/min/1.73m2 Moderately to severely decreased 30 - 44 mL/min/1.73m2 Severely decreased 15 - 29 mL/min/1.73m2 Kidney Failure < 15 mL/min/1.73m2 *Relative to young adult level Estimated glomerular filtration rate is determined by the 2020 CKD-EPI equation recommended by the National Kidney Foundation (A Unifying Approach to GFR Estimation: Recommendations of the NKF-ASK Task Force on Reassessing the Inclusion of Race in Diagnosing Kidney Disease, JASN 2020). The CKD-EPI equation should not be used for patients with unstable renal function and has not been validated in children and those over 70. Current interpretive data was last reviewed 2021. Blood 11/14/2024 10:1 1 PM SATURATOR OPERATOR 11/14/2024 10:[address] [facility] DO LAB BLOOD ORDERABLES Final Result Performing Organization Address City/[facility]/ZIP Co de Phone Number [facility] [place] [address] * (ABNORMAL) CBC without differential (11/14/2024 10:11 PM SATURATOR OPERATOR) Pathologist [facility] WBC 9.2 3.8 - 9.9 K/cumm Hgb 10.3(L) 13.0 - 17.5 g/dL [facility] Hct 32.7(L) 38.9 - 50.3 % [facility] Plt 250 150 - 400 K/cumm [facility] MPV 9.8 9.1 - 12.3 fL [facility] RBC 4.19(L) 4.30 - 5.80 M/cumm [facility] MCV 78.0(L) 81.3 - 96.4 fL [facility] MCH 24.6(L) 27.1 - 33.3 pg [facility] MCHC 31.5(L) 32.3 - 35.7 g/dL [facility] RDW CV 15.2(H) 11.1 - 14.9 % [facility] RDW SD 42.3 35.7 - 48.1 fL [facility] NRBC abs 0.00 0.00 - 0.01 K/cumm [facility] Blood 11/14/2024 10:1 1 PM SATURATOR OPERATOR 11/14/2024 10:44 PM SATURATOR OPERATOR [facility] Sensing DO LAB BLOOD ORDERABLES Final Result [facility] [place] [place] [address] * Phosphorus (11/14/2024 10:11 PM SATURATOR OPERATOR) Pathologist [facility] Phosphorus, pl 3.2 2.3 - 4.5 mg/dL Blood 11/14/2024 10:1 1 PM SATURATOR OPERATOR 11/14/2024 10:44 PM SATURATOR OPERATOR [facility] Sensing DO LAB BLOOD ORDERABLES Final Result Performing Organization Address City/[facility]/ZIP Co de Phone Number [facility] Department [place] [address] * Magnesium (11/14/2024 10:11 PM SATURATOR OPERATOR) [facility] Magnesium 2.0 1.4 - 2.5 mg/dL Blood 11/14/2024 10:1 1 PM SATURATOR OPERATOR 11/14/2024 10:[address] [facility] DO LAB BLOOD ORDERABLES Final Result Performing Organization Address [facility] de Phone Number [facility] Department [place] [address] * Basic metabolic panel (11/14/2024 10:11 PM SATURATOR OPERATOR) [facility] Sodium 141 135 - 145 mmol/L Potassium, pl 3.7 3.3 - 4.9 mmol/L [facility] Chloride 106 97 - 110 mmol/L [facility] CO2 27 22 - 32 mmol/L [facility] Anion gap 8 2 - 15 mmol/L [facility] BUN 13 6 - 25 mg/dL [facility] Creatinine 1.01 0.80 - 1.30 mg/dL [facility] Glucose 106 70 - 199 mg/dL [facility] Comment: Interpretive Data Fasting glucose >/= 126 mg/dl is diagnostic for diabetes. Fasting is defined as no caloric intake for at least 8 hours. Fasting glucose between 100 mg/dl to 125 mg/dl is diagnostic of prediabetes. In a patient with classic symptoms of hyperglycemia or hyperglycemic crisis, a random glucose >/= 200 mg/dl is diagnostic for diabetes. In the absence of unequivocal hyperglycemia, results should be confirmed by repeat testing. The classification and Diagnosis of Diabetes Diabetes Care 2021; 46: S19-S40. Current interpretive data was last revised 2022. Calcium 9.0 8.5 - 10.3 mg/dL [facility] Blood 11/14/2024 10:1 1 PM SATURATOR OPERATOR 11/14/2024 10:44 PM SATURATOR OPERATOR [place] Enrique Sensing DO LAB BLOOD ORDERABLES Final Result Performing Organization Address [facility]/ZIP Co de Phone Number GER[facility] Department [place] [address] * Urinalysis reflex to microscopic and culture Urine, clean voided (11/14/2024 4:39 PM SATURATOR OPERATOR) Color, ur Straw Yellow Clarity, ur Clear Clear [facility] Specific gravity, ur 1.017 1.003 - 1.030 [facility] pH, urine 7.0 [facility] Comment: Interpretive Data U rine pH is affected by diet, medications, systemic acid-base disturbances, and renal tubular function. pH may affect urinary stone formation. For example, urine pH below 6.0 may help reduce the tendency for calcium phosphate stones and pH greater than 6.0 may reduce the tendency for uric acid stone formation. Source: [facility] Current Interpretive Data was last revised on 2017 Protein, ur ql Negative Negative [facility] Glucose, ur ql Negative Negative [facility] Ketones, ur Negative Negative [facility] Bilirubin, ur Negative Negative [facility] Blood, ur Negative Negative [facility] Urobilinogen, ur <2.0 <2.0 mg/dL [facility] Nitrite, ur Negative Negative [facility] Leukocyte esterase, ur Negative Negative [facility] UA reflex comment Reflex conditions for microscopic UA and culture not met. [facility] Urine, clean voided 11/14/2024 4:39 PM SATURATOR OPERATOR 11/14/2024 4:48 PM SATURATOR OPERATOR [place] Enrique Sensing DO LAB MICROBIOLOGY - GE NERAL ORDERABLES Final Result Performing Organization Address [facility]/ZIP Co de Phone Number GERI [facility] Department [place] [address] * XR Abdomen Ap 1 Vw (11/14/2024 1:45 PM SATURATOR OPERATOR) Anatomical Region Laterality Modality Body, Abdomen N/A Computed Radiogr aphy 11/15/2024 11:4 6 AM SATURATOR OPERATOR Impressions 11/15/2024 12:07 PM SATURATOR OPERATOR A single view of the abdomen is submitted for evaluation. No dilated loops of small or large bowel. Bowel gas pattern is within normal limits. Calcification projecting over the right upper quadrant represents a renal calculus. Dictated by: Acosta Mccollum MD The radiology attending physician has personally reviewed this study, and had reviewed and/or edited this written report and agrees with it. Electronically signed by: Yusef Guillen M.D. Narrative 11/15/2024 12:07 PM SATURATOR OPERATOR EXAMINATION: Abdomen, one view. HISTORY: Nausea and vomiting. COMPARISON: CT thoracic and lumbar spine dated 11/13/2024. Procedure Note Yusef Guillen MD - 11/15/2024 EXAMINATION: Abdomen, one view. HISTORY: Nausea and vomiting. COMPARISON: CT thoracic and lumbar spine dated 11/13/2024. IMPRESSION: A single view of the abdomen is submitted for evaluation. No dilated loops of small or large bowel. Bowel gas pattern is within normal limits. Calcification projecting over the right upper quadrant represents a renal calculus. Dictated by: Acosta Mccollum MD The radiology attending physician has personally reviewed this study, and had reviewed and/or edited this written report and agrees with it. Electronically signed by: Yusef Guillen M.D. [facility] DO IMG XR PROCEDURES Fin al Result * MRI Cervical Spine WO Contrast (11/14/2024 1:56 AM SATURATOR OPERATOR) Anatomical Region Laterality Modality Spine N/A Magnetic Resonan ce 11/14/2024 8:51 AM SATURATOR OPERATOR Impressions 11/14/2024 8:51 AM SATURATOR OPERATOR 1. Nondisplaced anterior inferior corner fractures at C3 and C5 with minimal associated marrow edema and prevertebral soft tissue swelling extending from C2-C5. Age-indeterminate small C3-C4 central disc protrusion with annular fissure abutting the ventral margin of the spinal cord. No cord compression or cord signal abnormality. No ligamentous disruption. Mild abnormal signal within the interspinous ligaments posteriorly. 2. Chronic degenerative changes and possible nerve root impingements described above. Electronically signed by: Tim Sharma MD Narrative 11/14/2024 8:51 AM SATURATOR OPERATOR EXAMINATION: Magnetic resonance imaging (MRI) of the cervical spine without contrast HISTORY: Trauma, fall. TECHNIQUE: Multiplanar multi-weighted MRI of the cervical spine was performed without intravenous contrast using the standard protocol. COMPARISON: CT 11/13/2024 [facility] FINDINGS: Normal craniocervical junction and visualized posterior fossa contents. Mild prevertebral soft tissue edema extending from C2-C5. Nondisplaced anterior inferior corner fractures at C3 and C5 are visible with minimally associated marrow edema. Ligaments are intact with mild edema in the interspinous ligaments from C3-C6. No ligament disruption. C3-C4 age-indeterminate central disc extrusion with T2 hyperintense annular fissure abutting the ventral margin of the spinal cord without compression. 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 Minimal AP canal diameter is 8.5 mm at C4-C5. Mild multilevel facet arthropathy. Chronic uncovertebral hypertrophy results in severe bilateral C4-C5 neural foraminal stenosis and possible chronic C5 nerve root impingements. Moderate bilateral neural foraminal stenosis at C6-C7 from the same processes with partial effacement of the exiting C7 nerve root sleeves. Muscles are normal. Vertebral artery flow voids are normal as visualized. Procedure Note Tim Sharma MD PhD - 11/14/2024 EXAMINATION: Magnetic resonance imaging (MRI) of the cervical spine without contrast HISTORY: Trauma, fall. TECHNIQUE: Multiplanar multi-weighted MRI of the cervical spine was performed without intravenous contrast using the standard protocol. COMPARISON: CT 11/13/2024 [facility] FINDINGS: Normal craniocervical junction and visualized posterior fossa contents. Mild prevertebral soft tissue edema extending from C2-C5. Nondisplaced anterior inferior corner fractures at C3 and C5 are visible with minimally associated marrow edema. Ligaments are intact with mild edema in the interspinous ligaments from C3-C6. No ligament disruption. C3-C4 age-indeterminate central disc extrusion with T2 hyperintense annular fissure abutting the ventral margin of the spinal cord without compression. 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 Minimal AP canal diameter is 8.5 mm at C4-C5. Mild multilevel facet arthropathy. Chronic uncovertebral hypertrophy results in severe bilateral C4-C5 neural foraminal stenosis and possible chronic C5 nerve root impingements. Moderate bilateral neural foraminal stenosis at C6-C7 from the same processes with partial effacement of the exiting C7 nerve root sleeves. Muscles are normal. Vertebral artery flow voids are normal as visualized. IMPRESSION: 1. Nondisplaced anterior inferior corner fractures at C3 and C5 with minimal associated marrow edema and prevertebral soft tissue swelling extending from C2-C5. Age-indeterminate small C3-C4 central disc protrusion with annular fissure abutting the ventral margin of the spinal cord. No cord compression or cord signal abnormality. No ligamentous disruption. Mild abnormal signal within the interspinous ligaments posteriorly. 2. Chronic degenerative changes and possible nerve root impingements described above. Electronically signed by: Tim Sharma MD [facility] Sensing DO IMG MRI PROCEDURES Fi nal Result * Urinalysis reflex to microscopic and culture Urine (11/14/2024 12:16 AM SATURATOR OPERATOR) Color, ur Straw Yellow Clarity, ur Clear Clear [facility] Specific gravity, ur 1.019 1.003 - 1.030 [facility] pH, urine 6.5 [facility] Comment: Interpretive Data U rine pH is affected by diet, medications, systemic acid-base disturbances, and renal tubular function. pH may affect urinary stone formation. For example, urine pH below 6.0 may help reduce the tendency for calcium phosphate stones and pH greater than 6.0 may reduce the tendency for uric acid stone formation. Source: [employer] Current Interpretive Data was last revised on 2017 Protein, ur ql Negative Negative [facility] Glucose, ur ql Negative Negative [facility] Ketones, ur Trace Negative [facility] Bilirubin, ur Negative Negative [facility] Blood, ur Negative Negative [facility] Urobilinogen, ur <2.0 <2.0 mg/dL [facility] Nitrite, ur Negative Negative [facility] Leukocyte esterase, ur Negative Negative [facility] UA reflex comment Reflex conditions for microscopic UA and culture not met. [facility] Urine 11/14/2024 12:1 6 AM SATURATOR OPERATOR 11/14/2024 12:25 AM SATURATOR OPERATOR us Melanie Hays MD LAB MICROBIOLOGY - GENERAL ORDERABLES Final Result [facility] Department [place] [address] * CT Thoracic and Lumbar Spine WO Contrast (11/13/2024 11:00 PM SATURATOR OPERATOR) Anatomical Region Laterality Modality Spine N/A Computed Tomogra phy 11/14/2024 12:5 3 AM SATURATOR OPERATOR Impressions 11/14/2024 7:46 AM SATURATOR OPERATOR 1. No acute fracture in the thoracic or lumbar spine. 2. Partially imaged C5 vertebral body fracture, better evaluated on prior cervical spine CT. Dictated by: Sharad Tiwari MD The radiology attending physician has personally reviewed this study, and had reviewed and/or edited this written report and agrees with it. Electronically signed by: Tim Sharma MD Narrative 11/14/2024 7:46 AM SATURATOR OPERATOR EXAMINATION: 1. CT of the thoracic spine without contrast 2. CT of the lumbar spine without contrast HISTORY: 59-year-old with compression fracture TECHNIQUE: CT of the thoracic spine was performed according to standard protocol without intravenous contrast. CT of the lumbar spine was performed according to the standard protocol without intravenous contrast. COMPARISON: None Available. FINDINGS: THORACIC SPINE: There are 12 rib-bearing thoracic vertebra. Partially imaged corner fracture of the C5 vertebral body as described on prior cervical spine CT. No acute fracture in the thoracic spine. Alignment is within normal limits. No high-grade neural foraminal or spinal canal stenosis. The alignment of the thoracic spine is normal. There is no acute fracture. Vertebral bodies are normal in height without compression fractures. Intervertebral disk heights are normal. There is no soft tissue abnormality. The thoracic aorta is normal. The disks are normal in configuration. There is no facet hypertrophy. There is no neuroforaminal stenosis. There is no spinal canal stenosis. LUMBAR SPINE: The alignment of the lumbar spine is normal. There is no acute fracture. The vertebral bodies are normal in height without compression fractures. The intervertebral disk heights are normal. There is no soft tissue abnormality. The abdominal aorta appears normal. Procedure Note Tim Sharma MD PhD - 11/14/2024 EXAMINATION: 1. CT of the thoracic spine without contrast 2. CT of the lumbar spine without contrast HISTORY: 59-year-old with compression fracture TECHNIQUE: CT of the thoracic spine was performed according to standard protocol without intravenous contrast. CT of the lumbar spine was performed according to the standard protocol without intravenous contrast. COMPARISON: None Available. FINDINGS: THORACIC SPINE: There are 12 rib-bearing thoracic vertebra. Partially imaged corner fracture of the C5 vertebral body as described on prior cervical spine CT. No acute fracture in the thoracic spine. Alignment is within normal limits. No high-grade neural foraminal or spinal canal stenosis. The alignment of the thoracic spine is normal. There is no acute fracture. Vertebral bodies are normal in height without compression fractures. Intervertebral disk heights are normal. There is no soft tissue abnormality. The thoracic aorta is normal. The disks are normal in configuration. There is no facet hypertrophy. There is no neuroforaminal stenosis. There is no spinal canal stenosis. LUMBAR SPINE: The alignment of the lumbar spine is normal. There is no acute fracture. The vertebral bodies are normal in height without compression fractures. The intervertebral disk heights are normal. There is no soft tissue abnormality. The abdominal aorta appears normal. IMPRESSION: 1. No acute fracture in the thoracic or lumbar spine. 2. Partially imaged C5 vertebral body fracture, better evaluated on prior cervical spine CT. Dictated by: Sharad Tiwari MD The radiology attending physician has personally reviewed this study, and had reviewed and/or edited this written report and agrees with it. Electronically signed by: Tim Sharma MD Samantha Sharma MD IMG CT PROCEDURES Final R esult * XR Chest 1 View (11/13/2024 5:09 PM SATURATOR OPERATOR) Anatomical Region Laterality Modality Body, Chest N/A Computed Radiogr aphy 11/13/2024 5:39 PM SATURATOR OPERATOR Impressions 11/13/2024 6:03 PM SATURATOR OPERATOR 1. Unchanged anterior inferior corner fractures at C3 and C5. 2. Apparent shortening of the right femoral neck and possible rotation of the right femoral head which may represent a femoral neck fracture, however this is poorly evaluated on single radiograph. Recommend correlation with point tenderness and if there is concern for a fracture additional radiographs of the right hip could be obtained. 3. No acute fracture in the thoracic or lumbar spine. 4. No acute finding in the chest. Dictated by: Ricky Torres MD The radiology attending physician has personally reviewed this study, and had reviewed and/or edited this written report and agrees with it. Electronically signed by: Duncan Ram M.D. Narrative 11/13/2024 6:03 PM SATURATOR OPERATOR EXAMINATION: XR SPINE CERVICAL 2 OR 3 VIEWS, XR CHEST 1 VIEW, XR SPINE THORACIC 3 VIEWS, XR PELVIS 1 OR 2 VIEWS, XR SPINE LUMBAR 2 OR 3 VIEWS HISTORY: Cervical spine fractures after fall COMPARISON: Same day prior CTs FINDINGS: Cervical spine: Unchanged anteroinferior corner fractures of the C3 and C5 vertebral bodies which are better evaluated on prior CT. Mild dextrocurvature of the cervical spine. Sagittal alignment is normal. Vertebral body heights are normal. Multilevel degenerative disc disease greatest and moderate at C4-C5. The dens is intact and the lateral masses are symmetric. Prevertebral soft tissues are normal. Thoracic spine: Alignment is normal. Vertebral body heights are normal. No acute fracture. Mild multilevel degenerative disc disease. Lumbar spine: Grade 1 anterolisthesis at L5-S1. There is straightening of the lumbar lordosis. Vertebral body heights are normal. Mild multilevel degenerative disc disease. Vascular calcifications. Mild lower lumbar facet arthropathy. CHEST: The lung volumes are small. There is mild bibasilar atelectasis. No pleural effusion or pneumothorax. Cardiomediastinal silhouette is normal. Pelvis: Apparent shortening of the right femoral neck and rotation of the right femoral head which may represent a femoral neck fracture, however this is difficult to evaluate on this single radiograph. Procedure Note Duncan Ram MD PhD - 11/13/2024 EXAMINATION: XR SPINE CERVICAL 2 OR 3 VIEWS, XR CHEST 1 VIEW, XR SPINE THORACIC 3 VIEWS, XR PELVIS 1 OR 2 VIEWS, XR SPINE LUMBAR 2 OR 3 VIEWS HISTORY: Cervical spine fractures after fall COMPARISON: Same day prior CTs FINDINGS: Cervical spine: Unchanged anteroinferior corner fractures of the C3 and C5 vertebral bodies which are better evaluated on prior CT. Mild dextrocurvature of the cervical spine. Sagittal alignment is normal. Vertebral body heights are normal. Multilevel degenerative disc disease greatest and moderate at C4-C5. The dens is intact and the lateral masses are symmetric. Prevertebral soft tissues are normal. Thoracic spine: Alignment is normal. Vertebral body heights are normal. No acute fracture. Mild multilevel degenerative disc disease. Lumbar spine: Grade 1 anterolisthesis at L5-S1. There is straightening of the lumbar lordosis. Vertebral body heights are normal. Mild multilevel degenerative disc disease. Vascular calcifications. Mild lower lumbar facet arthropathy. CHEST: The lung volumes are small. There is mild bibasilar atelectasis. No pleural effusion or pneumothorax. Cardiomediastinal silhouette is normal. Pelvis: Apparent shortening of the right femoral neck and rotation of the right femoral head which may represent a femoral neck fracture, however this is difficult to evaluate on this single radiograph. IMPRESSION: 1. Unchanged anterior inferior corner fractures at C3 and C5. 2. Apparent shortening of the right femoral neck and possible rotation of the right femoral head which may represent a femoral neck fracture, however this is poorly evaluated on single radiograph. Recommend correlation with point tenderness and if there is concern for a fracture additional radiographs of the right hip could be obtained. 3. No acute fracture in the thoracic or lumbar spine. 4. No acute finding in the chest. Dictated by: Ricky Torres MD The radiology attending physician has personally reviewed this study, and had reviewed and/or edited this written report and agrees with it. Electronically signed by: Duncan Ram M.D. us Melanie Hays MD IMG XR PROCEDURES Final Res ult * XR Spine Lumbar 2 or 3 Views (11/13/2024 5:08 PM SATURATOR OPERATOR) Anatomical Region Laterality Modality Spine N/A Computed Radiogr aphy 11/13/2024 5:39 PM SATURATOR OPERATOR Impressions 11/13/2024 6:03 PM SATURATOR OPERATOR 1. Unchanged anterior inferior corner fractures at C3 and C5. 2. Apparent shortening of the right femoral neck and possible rotation of the right femoral head which may represent a femoral neck fracture, however this is poorly evaluated on single radiograph. Recommend correlation with point tenderness and if there is concern for a fracture additional radiographs of the right hip could be obtained. 3. No acute fracture in the thoracic or lumbar spine. 4. No acute finding in the chest. Dictated by: Ricky Torres MD The radiology attending physician has personally reviewed this study, and had reviewed and/or edited this written report and agrees with it. Electronically signed by: Duncan Ram M.D. Narrative 11/13/2024 6:03 PM SATURATOR OPERATOR EXAMINATION: XR SPINE CERVICAL 2 OR 3 VIEWS, XR CHEST 1 VIEW, XR SPINE THORACIC 3 VIEWS, XR PELVIS 1 OR 2 VIEWS, XR SPINE LUMBAR 2 OR 3 VIEWS HISTORY: Cervical spine fractures after fall COMPARISON: Same day prior CTs FINDINGS: Cervical spine: Unchanged anteroinferior corner fractures of the C3 and C5 vertebral bodies which are better evaluated on prior CT. Mild dextrocurvature of the cervical spine. Sagittal alignment is normal. Vertebral body heights are normal. Multilevel degenerative disc disease greatest and moderate at C4-C5. The dens is intact and the lateral masses are symmetric. Prevertebral soft tissues are normal. Thoracic spine: Alignment is normal. Vertebral body heights are normal. No acute fracture. Mild multilevel degenerative disc disease. Lumbar spine: Grade 1 anterolisthesis at L5-S1. There is straightening of the lumbar lordosis. Vertebral body heights are normal. Mild multilevel degenerative disc disease. Vascular calcifications. Mild lower lumbar facet arthropathy. CHEST: The lung volumes are small. There is mild bibasilar atelectasis. No pleural effusion or pneumothorax. Cardiomediastinal silhouette is normal. Pelvis: Apparent shortening of the right femoral neck and rotation of the right femoral head which may represent a femoral neck fracture, however this is difficult to evaluate on this single radiograph. Procedure Note Duncan Ram MD PhD - 11/13/2024 EXAMINATION: XR SPINE CERVICAL 2 OR 3 VIEWS, XR CHEST 1 VIEW, XR SPINE THORACIC 3 VIEWS, XR PELVIS 1 OR 2 VIEWS, XR SPINE LUMBAR 2 OR 3 VIEWS HISTORY: Cervical spine fractures after fall COMPARISON: Same day prior CTs FINDINGS: Cervical spine: Unchanged anteroinferior corner fractures of the C3 and C5 vertebral bodies which are better evaluated on prior CT. Mild dextrocurvature of the cervical spine. Sagittal alignment is normal. Vertebral body heights are normal. Multilevel degenerative disc disease greatest and moderate at C4-C5. The dens is intact and the lateral masses are symmetric. Prevertebral soft tissues are normal. Thoracic spine: Alignment is normal. Vertebral body heights are normal. No acute fracture. Mild multilevel degenerative disc disease. Lumbar spine: Grade 1 anterolisthesis at L5-S1. There is straightening of the lumbar lordosis. Vertebral body heights are normal. Mild multilevel degenerative disc disease. Vascular calcifications. Mild lower lumbar facet arthropathy. CHEST: The lung volumes are small. There is mild bibasilar atelectasis. No pleural effusion or pneumothorax. Cardiomediastinal silhouette is normal. Pelvis: Apparent shortening of the right femoral neck and rotation of the right femoral head which may represent a femoral neck fracture, however this is difficult to evaluate on this single radiograph. IMPRESSION: 1. Unchanged anterior inferior corner fractures at C3 and C5. 2. Apparent shortening of the right femoral neck and possible rotation of the right femoral head which may represent a femoral neck fracture, however this is poorly evaluated on single radiograph. Recommend correlation with point tenderness and if there is concern for a fracture additional radiographs of the right hip could be obtained. 3. No acute fracture in the thoracic or lumbar spine. 4. No acute finding in the chest. Dictated by: Ricky Torres MD The radiology attending physician has personally reviewed this study, and had reviewed and/or edited this written report and agrees with it. Electronically signed by: Duncan Ram M.D. Melanie Hays MD IMG XR PROCEDURES Final Res ult * XR Pelvis 1 or 2 Views (11/13/2024 5:08 PM SATURATOR OPERATOR) Anatomical Region Laterality Modality Body, Pelvis N/A Computed Radiogr aphy 11/13/2024 5:39 PM SATURATOR OPERATOR Impressions 11/13/2024 6:03 PM SATURATOR OPERATOR 1. Unchanged anterior inferior corner fractures at C3 and C5. 2. Apparent shortening of the right femoral neck and possible rotation of the right femoral head which may represent a femoral neck fracture, however this is poorly evaluated on single radiograph. Recommend correlation with point tenderness and if there is concern for a fracture additional radiographs of the right hip could be obtained. 3. No acute fracture in the thoracic or lumbar spine. 4. No acute finding in the chest. Dictated by: Ricky Torres MD The radiology attending physician has personally reviewed this study, and had reviewed and/or edited this written report and agrees with it. Electronically signed by: Duncan Ram M.D. Narrative 11/13/2024 6:03 PM SATURATOR OPERATOR EXAMINATION: XR SPINE CERVICAL 2 OR 3 VIEWS, XR CHEST 1 VIEW, XR SPINE THORACIC 3 VIEWS, XR PELVIS 1 OR 2 VIEWS, XR SPINE LUMBAR 2 OR 3 VIEWS HISTORY: Cervical spine fractures after fall COMPARISON: Same day prior CTs FINDINGS: Cervical spine: Unchanged anteroinferior corner fractures of the C3 and C5 vertebral bodies which are better evaluated on prior CT. Mild dextrocurvature of the cervical spine. Sagittal alignment is normal. Vertebral body heights are normal. Multilevel degenerative disc disease greatest and moderate at C4-C5. The dens is intact and the lateral masses are symmetric. Prevertebral soft tissues are normal. Thoracic spine: Alignment is normal. Vertebral body heights are normal. No acute fracture. Mild multilevel degenerative disc disease. Lumbar spine: Grade 1 anterolisthesis at L5-S1. There is straightening of the lumbar lordosis. Vertebral body heights are normal. Mild multilevel degenerative disc disease. Vascular calcifications. Mild lower lumbar facet arthropathy. CHEST: The lung volumes are small. There is mild bibasilar atelectasis. No pleural effusion or pneumothorax. Cardiomediastinal silhouette is normal. Pelvis: Apparent shortening of the right femoral neck and rotation of the right femoral head which may represent a femoral neck fracture, however this is difficult to evaluate on this single radiograph. Procedure Note Duncan Ram MD PhD - 11/13/2024 EXAMINATION: XR SPINE CERVICAL 2 OR 3 VIEWS, XR CHEST 1 VIEW, XR SPINE THORACIC 3 VIEWS, XR PELVIS 1 OR 2 VIEWS, XR SPINE LUMBAR 2 OR 3 VIEWS HISTORY: Cervical spine fractures after fall COMPARISON: Same day prior CTs FINDINGS: Cervical spine: Unchanged anteroinferior corner fractures of the C3 and C5 vertebral bodies which are better evaluated on prior CT. Mild dextrocurvature of the cervical spine. Sagittal alignment is normal. Vertebral body heights are normal. Multilevel degenerative disc disease greatest and moderate at C4-C5. The dens is intact and the lateral masses are symmetric. Prevertebral soft tissues are normal. Thoracic spine: Alignment is normal. Vertebral body heights are normal. No acute fracture. Mild multilevel degenerative disc disease. Lumbar spine: Grade 1 anterolisthesis at L5-S1. There is straightening of the lumbar lordosis. Vertebral body heights are normal. Mild multilevel degenerative disc disease. Vascular calcifications. Mild lower lumbar facet arthropathy. CHEST: The lung volumes are small. There is mild bibasilar atelectasis. No pleural effusion or pneumothorax. Cardiomediastinal silhouette is normal. Pelvis: Apparent shortening of the right femoral neck and rotation of the right femoral head which may represent a femoral neck fracture, however this is difficult to evaluate on this single radiograph. IMPRESSION: 1. Unchanged anterior inferior corner fractures at C3 and C5. 2. Apparent shortening of the right femoral neck and possible rotation of the right femoral head which may represent a femoral neck fracture, however this is poorly evaluated on single radiograph. Recommend correlation with point tenderness and if there is concern for a fracture additional radiographs of the right hip could be obtained. 3. No acute fracture in the thoracic or lumbar spine. 4. No acute finding in the chest. Dictated by: Ricky Torres MD The radiology attending physician has personally reviewed this study, and had reviewed and/or edited this written report and agrees with it. Electronically signed by: Duncan Ram M.D. us Melanie Hays MD IMG XR PROCEDURES Final Res ult * XR Spine Thoracic 3 Vw (11/13/2024 5:08 PM SATURATOR OPERATOR) Anatomical Region Laterality Modality Spine N/A Computed Radiogr aphy 11/13/2024 5:39 PM SATURATOR OPERATOR Impressions 11/13/2024 6:03 PM SATURATOR OPERATOR 1. Unchanged anterior inferior corner fractures at C3 and C5. 2. Apparent shortening of the right femoral neck and possible rotation of the right femoral head which may represent a femoral neck fracture, however this is poorly evaluated on single radiograph. Recommend correlation with point tenderness and if there is concern for a fracture additional radiographs of the right hip could be obtained. 3. No acute fracture in the thoracic or lumbar spine. 4. No acute finding in the chest. Dictated by: Ricky Torres MD The radiology attending physician has personally reviewed this study, and had reviewed and/or edited this written report and agrees with it. Electronically signed by: Duncan Ram M.D. Narrative 11/13/2024 6:03 PM SATURATOR OPERATOR EXAMINATION: XR SPINE CERVICAL 2 OR 3 VIEWS, XR CHEST 1 VIEW, XR SPINE THORACIC 3 VIEWS, XR PELVIS 1 OR 2 VIEWS, XR SPINE LUMBAR 2 OR 3 VIEWS HISTORY: Cervical spine fractures after fall COMPARISON: Same day prior CTs FINDINGS: Cervical spine: Unchanged anteroinferior corner fractures of the C3 and C5 vertebral bodies which are better evaluated on prior CT. Mild dextrocurvature of the cervical spine. Sagittal alignment is normal. Vertebral body heights are normal. Multilevel degenerative disc disease greatest and moderate at C4-C5. The dens is intact and the lateral masses are symmetric. Prevertebral soft tissues are normal. Thoracic spine: Alignment is normal. Vertebral body heights are normal. No acute fracture. Mild multilevel degenerative disc disease. Lumbar spine: Grade 1 anterolisthesis at L5-S1. There is straightening of the lumbar lordosis. Vertebral body heights are normal. Mild multilevel degenerative disc disease. Vascular calcifications. Mild lower lumbar facet arthropathy. CHEST: The lung volumes are small. There is mild bibasilar atelectasis. No pleural effusion or pneumothorax. Cardiomediastinal silhouette is normal. Pelvis: Apparent shortening of the right femoral neck and rotation of the right femoral head which may represent a femoral neck fracture, however this is difficult to evaluate on this single radiograph. Procedure Note Duncan Ram MD PhD - 11/13/2024 EXAMINATION: XR SPINE CERVICAL 2 OR 3 VIEWS, XR CHEST 1 VIEW, XR SPINE THORACIC 3 VIEWS, XR PELVIS 1 OR 2 VIEWS, XR SPINE LUMBAR 2 OR 3 VIEWS HISTORY: Cervical spine fractures after fall COMPARISON: Same day prior CTs FINDINGS: Cervical spine: Unchanged anteroinferior corner fractures of the C3 and C5 vertebral bodies which are better evaluated on prior CT. Mild dextrocurvature of the cervical spine. Sagittal alignment is normal. Vertebral body heights are normal. Multilevel degenerative disc disease greatest and moderate at C4-C5. The dens is intact and the lateral masses are symmetric. Prevertebral soft tissues are normal. Thoracic spine: Alignment is normal. Vertebral body heights are normal. No acute fracture. Mild multilevel degenerative disc disease. Lumbar spine: Grade 1 anterolisthesis at L5-S1. There is straightening of the lumbar lordosis. Vertebral body heights are normal. Mild multilevel degenerative disc disease. Vascular calcifications. Mild lower lumbar facet arthropathy. CHEST: The lung volumes are small. There is mild bibasilar atelectasis. No pleural effusion or pneumothorax. Cardiomediastinal silhouette is normal. Pelvis: Apparent shortening of the right femoral neck and rotation of the right femoral head which may represent a femoral neck fracture, however this is difficult to evaluate on this single radiograph. IMPRESSION: 1. Unchanged anterior inferior corner fractures at C3 and C5. 2. Apparent shortening of the right femoral neck and possible rotation of the right femoral head which may represent a femoral neck fracture, however this is poorly evaluated on single radiograph. Recommend correlation with point tenderness and if there is concern for a fracture additional radiographs of the right hip could be obtained. 3. No acute fracture in the thoracic or lumbar spine. 4. No acute finding in the chest. Dictated by: Ricky Torres MD The radiology attending physician has personally reviewed this study, and had reviewed and/or edited this written report and agrees with it. Electronically signed by: Duncan Ram M.D. Melanie Hays MD IMG XR PROCEDURES Final Res ult * XR Spine Cervical 2 or 3 Views (11/13/2024 5:08 PM SATURATOR OPERATOR) Anatomical Region Laterality Modality Spine N/A Computed Radiogr aphy 11/13/2024 5:39 PM SATURATOR OPERATOR Impressions 11/13/2024 6:03 PM SATURATOR OPERATOR 1. Unchanged anterior inferior corner fractures at C3 and C5. 2. Apparent shortening of the right femoral neck and possible rotation of the right femoral head which may represent a femoral neck fracture, however this is poorly evaluated on single radiograph. Recommend correlation with point tenderness and if there is concern for a fracture additional radiographs of the right hip could be obtained. 3. No acute fracture in the thoracic or lumbar spine. 4. No acute finding in the chest. Dictated by: Ricky Torres MD The radiology attending physician has personally reviewed this study, and had reviewed and/or edited this written report and agrees with it. Electronically signed by: Duncan Ram M.D. Narrative 11/13/2024 6:03 PM SATURATOR OPERATOR EXAMINATION: XR SPINE CERVICAL 2 OR 3 VIEWS, XR CHEST 1 VIEW, XR SPINE THORACIC 3 VIEWS, XR PELVIS 1 OR 2 VIEWS, XR SPINE LUMBAR 2 OR 3 VIEWS HISTORY: Cervical spine fractures after fall COMPARISON: Same day prior CTs FINDINGS: Cervical spine: Unchanged anteroinferior corner fractures of the C3 and C5 vertebral bodies which are better evaluated on prior CT. Mild dextrocurvature of the cervical spine. Sagittal alignment is normal. Vertebral body heights are normal. Multilevel degenerative disc disease greatest and moderate at C4-C5. The dens is intact and the lateral masses are symmetric. Prevertebral soft tissues are normal. Thoracic spine: Alignment is normal. Vertebral body heights are normal. No acute fracture. Mild multilevel degenerative disc disease. Lumbar spine: Grade 1 anterolisthesis at L5-S1. There is straightening of the lumbar lordosis. Vertebral body heights are normal. Mild multilevel degenerative disc disease. Vascular calcifications. Mild lower lumbar facet arthropathy. CHEST: The lung volumes are small. There is mild bibasilar atelectasis. No pleural effusion or pneumothorax. Cardiomediastinal silhouette is normal. Pelvis: Apparent shortening of the right femoral neck and rotation of the right femoral head which may represent a femoral neck fracture, however this is difficult to evaluate on this single radiograph. Procedure Note Duncan Ram MD PhD - 11/13/2024 EXAMINATION: XR SPINE CERVICAL 2 OR 3 VIEWS, XR CHEST 1 VIEW, XR SPINE THORACIC 3 VIEWS, XR PELVIS 1 OR 2 VIEWS, XR SPINE LUMBAR 2 OR 3 VIEWS HISTORY: Cervical spine fractures after fall COMPARISON: Same day prior CTs FINDINGS: Cervical spine: Unchanged anteroinferior corner fractures of the C3 and C5 vertebral bodies which are better evaluated on prior CT. Mild dextrocurvature of the cervical spine. Sagittal alignment is normal. Vertebral body heights are normal. Multilevel degenerative disc disease greatest and moderate at C4-C5. The dens is intact and the lateral masses are symmetric. Prevertebral soft tissues are normal. Thoracic spine: Alignment is normal. Vertebral body heights are normal. No acute fracture. Mild multilevel degenerative disc disease. Lumbar spine: Grade 1 anterolisthesis at L5-S1. There is straightening of the lumbar lordosis. Vertebral body heights are normal. Mild multilevel degenerative disc disease. Vascular calcifications. Mild lower lumbar facet arthropathy. CHEST: The lung volumes are small. There is mild bibasilar atelectasis. No pleural effusion or pneumothorax. Cardiomediastinal silhouette is normal. Pelvis: Apparent shortening of the right femoral neck and rotation of the right femoral head which may represent a femoral neck fracture, however this is difficult to evaluate on this single radiograph. IMPRESSION: 1. Unchanged anterior inferior corner fractures at C3 and C5. 2. Apparent shortening of the right femoral neck and possible rotation of the right femoral head which may represent a femoral neck fracture, however this is poorly evaluated on single radiograph. Recommend correlation with point tenderness and if there is concern for a fracture additional radiographs of the right hip could be obtained. 3. No acute fracture in the thoracic or lumbar spine. 4. No acute finding in the chest. Dictated by: Ricky Torres MD The radiology attending physician has personally reviewed this study, and had reviewed and/or edited this written report and agrees with it. Electronically signed by: Duncan Ram M.D. us Samantha Sharma MD IMG XR PROCEDURES Final R esult * (ABNORMAL) aPTT (11/13/2024 4:23 PM SATURATOR OPERATOR) aPTT 24(L) 28 - 38 sec Comment: Interpretive Data Heparin therapeutic range: 66.0 - 100.0 seconds. Range based on correlation with therapeutic heparin activity range of 0.3 - 0.7 Units/mL. Current interpretive data was last revised on 2023. Blood 11/13/2024 4:23 PM SATURATOR OPERATOR 11/13/2024 4:53 PM SATURATOR OPERATOR us Melanie Hays MD LAB BLOOD ORDERABLES Final Result [facility] Department [place] [address] * (ABNORMAL) Protime-INR (11/13/2024 4:23 PM SATURATOR OPERATOR) PT 14.0(H) 9.7 - 13.0 sec INR 1.29(H) 0.90 - 1.20 [facility] Comment: Interpretive data Oral anticoagulant therapeutic ranges: Venous thromboembolism prophylaxis or treatment: 2.0-3.0 CARDIOLOGY Standard range: 2.0-3.0 High-intensity range: 2.5-3.5 Refer to indication-specific guidelines for appropriate target ranges for prosthetic heart valve replacement. Current interpretive data was last revised on 2019. Blood 11/13/2024 4:23 PM SATURATOR OPERATOR 11/13/2024 4:53 PM SATURATOR OPERATOR Melanie Hays MD LAB BLOOD ORDERABLES Final Result Performing Organization Address City/[facility] Co de Phone Number [facility] [place] [place] [address] * Type and screen (11/13/2024 4:23 PM SATURATOR OPERATOR) Susan, indirect Negative ABO Rh B Positive [facility] Blood 11/13/2024 4:23 PM SATURATOR OPERATOR 11/13/2024 4:46 PM SATURATOR OPERATOR Narrative [facility] - 11/13/2024 5:54 PM SATURATOR OPERATOR Has the patient had Daratumumab or Isatuximab in the past 6 months?->Unknown us Melanie Hays MD LAB BLOOD BANK TEST ORDERAB LES Final Result [facility] [place] [employer] [place] [address] * Laceration Repair (11/13/2024 1:28 PM SATURATOR OPERATOR) Narrative Tim Prater MD - 11/13/2024 1:28 PM SATURATOR OPERATOR Tim Prater MD 11/13/2024 6:54 PM Laceration Repair Date/Time: 11/13/2024 1:28 PM Performed by: Tim Prater MD Authorized by: Tim Prater MD RN Notified of Procedure: yes Informed consent: Risks, benefits, alternatives discussed and patient/pharmacy services representative/guardian agrees and accepts Patient's stated name/ matches armband: Yes Allergies confirmed: yes Procedure verified: Verbal consent given. Supplies, devices and special equipment are available: yes Immediately prior to the procedure a time out was called: a verbal verification by the procedure participants confirmed correct patient identity, correct site/side marked and visible (if applicable); agreement on procedure to be done; and correct patient positioning Sedation used: no Location: Face Face location: Forehead Length (cm): 7 Preparation: Patient was prepped and draped in usual sterile fashion Hemostasis achieved with: LET (3 mL) Wound exploration: wound explored through full range of motion and entire depth of wound probed and visualized Wound cleansed with: Peroxide scrub. Repair method: Sutures Suture size: 4-0 Suture material: Vicryl Approximation: Close Patient tolerance of procedure: Tolerated well, no immediate complications All guidewires, needles, sponges or other items are accounted for: yes Tim Prater MD IN CLINIC/BEDSIDE ORDERABLE S Final Result * CT Cervical Spine WO Contrast (11/13/2024 11:55 AM SATURATOR OPERATOR) Anatomical Region Laterality Modality Spine N/A Computed Tomogra phy 11/13/2024 12:4 0 PM SATURATOR OPERATOR Narrative 11/13/2024 1:02 PM SATURATOR OPERATOR EXAM DESCRIPTION: CT CERVICAL SPINE WO CONTRAST REASON FOR STUDY: NECK PAIN, FIRST STUDY, fall after donating blood Fall today, LOC, has forehead laceration and nose bleed, denies neck pain TECHNIQUE: Axial images through the cervical spine with sagittal and coronal reformatted images. Automated exposure control was used as a dose optimization technique for this examination. COMPARISON: No comparison. FINDINGS: ALIGNMENT: Normal. VERTEBRAE: There are acute anterior inferior corner fractures of the C3 and C5 vertebral bodies. DISCS: There is disc degeneration with posterior endplate osteophytic spurring most evident at C4-5, C5-6, C6-7 levels. HARDWARE: None in the spine. INDIVIDUAL LEVELS: C1-C2: No significant osseous spinal stenosis. C2-C3: No significant osseous spinal stenosis or neural foraminal stenosis. C3-C4: No significant osseous spinal stenosis or neural foraminal stenosis. C4-C5: Posterior uncovertebral spurring with severe left and mild right foraminal narrowing. Mild spinal stenosis. C5-C6: Mild uncovertebral and facet spurring with mild spinal stenosis. No foraminal narrowing. C6-C7: Uncovertebral and facet spurring with moderate to severe right and mild left foraminal narrowing. No central canal stenosis. C7-T1: No significant osseous spinal stenosis or neural foraminal stenosis. UPPER THORACIC: Incompletely imaged. No significant osseous spinal stenosis or osseous neural foraminal stenosis. SKULL BASE: No significant finding. LUNG APICES: 5 mm nodule in the left lung apex.. NECK SOFT TISSUES: No significant abnormality. OTHER: No other significant findings. IMPRESSION: Acute anterior inferior corner fractures of the C3 and C5 vertebral bodies. Minimal displacement. Overall cervical alignment is normal without spinal canal stenosis. Multilevel cervical spondylosis with foraminal narrowing at several levels. This is most evident at C4-5 with foraminal narrowing on the left. Incidental 5 mm nodule in the left lung apex. Per Fleischner Society Guidelines, no further investigation recommended. If indicated by clinical factors however a complete chest CT without contrast may be considered on a nonemergent basis for follow-up in this patient with no previous chest imaging. Findings discussed with Dr. Prater at the time of interpretation. THIS IS AN ELECTRONICALLY VERIFIED FINAL REPORT 11/13/2024 1:02 PM - Electronically signed by Juan Miguel Whitten M.D. LC: MONICA Report ID: [id number] Reading Location: [id number] Procedure Note Kitty Whitten MD - 11/13/2024 EXAM DESCRIPTION: CT CERVICAL SPINE WO CONTRAST REASON FOR STUDY: NECK PAIN, FIRST STUDY, fall after donating blood Fall today, LOC, has forehead laceration and nose bleed, denies neck pain TECHNIQUE: Axial images through the cervical spine with sagittal andcoronal reformatted images. Automated exposure control was used as a doseoptimization technique for this examination. COMPARISON: No comparison. FINDINGS: ALIGNMENT: Normal. VERTEBRAE: There are acute anterior inferior corner fractures of the C3and C5 vertebral bodies. DISCS: There is disc degeneration with posterior endplate osteophytic spurring most evident at C4-5, C5-6, C6-7 levels. HARDWARE: None in the spine. INDIVIDUAL LEVELS: C1-C2: No significant osseous spinal stenosis. C2-C3: No significant osseous spinal stenosis or neural foraminalstenosis. C3-C4: No significant osseous spinal stenosis or neural foraminalstenosis. C4-C5: Posterior uncovertebral spurring with severe left and mild right foraminal narrowing. Mild spinal stenosis. C5-C6: Mild uncovertebral and facet spurring with mild spinal stenosis.No foraminal narrowing. C6-C7: Uncovertebral and facet spurring with moderate to severe rightand mild left foraminal narrowing. No central canal stenosis. C7-T1: No significant osseous spinal stenosis or neural foraminalstenosis. UPPER THORACIC: Incompletely imaged. No significant osseous spinalstenosis or osseous neural foraminal stenosis. SKULL BASE: No significant finding. LUNG APICES: 5 mm nodule in the left lung apex.. NECK SOFT TISSUES: No significant abnormality. OTHER: No other significant findings. IMPRESSION: Acute anterior inferior corner fractures of the C3 and C5 vertebralbodies. Minimal displacement. Overall cervical alignment is normal without spinal canal stenosis. Multilevel cervical spondylosis with foraminal narrowing at severallevels. This is most evident at C4-5 with foraminal narrowing on the left. Incidental 5 mm nodule in the left lung apex. Per Fleischner Society Guidelines, no further investigation recommended. If indicated byclinical factors however a complete chest CT without contrast may be considered enrique nonemergent basis for follow-up in this patient with no previous chest imaging. Findings discussed with Dr. Prater at the time of interpretation. THIS IS AN ELECTRONICALLY VERIFIED FINAL REPORT 11/13/2024 1:02 PM - Electronically signed by Juan Miguel Whitten M.D. LC: MONICA Report ID: [id number] Reading Location: [id number] us Tim Prater MD IMG CT PROCEDURES Final Res ult * CT Facial Bones WO Contrast (11/13/2024 11:55 AM SATURATOR OPERATOR) Anatomical Region Laterality Modality Head and Neck N/A Computed Tomogra phy 11/13/2024 1:01 PM SATURATOR OPERATOR Narrative 11/13/2024 1:12 PM SATURATOR OPERATOR EXAM DESCRIPTION: CT FACIAL BONES WO CONTRAST REASON FOR STUDY: Maxillofacial pain, Facial trauma, blunt Fall today, LOC, has forehead laceration and nose bleed, denies neck pain TECHNIQUE: Noncontrast computed tomography images through the paranasal sinuses. Reconstructed MPR images reviewed. All images stored on PACS. Automated exposure control was used as a dose optimization technique for this examination. COMPARISON: Head CT comparison from today. FINDINGS: BONES: Multiple acute facial bone fractures are identified. There is a mildly displaced fracture of the left lateral orbital wall. There are bilateral nasal bone fractures. There is a fracture of the anterior nasal septum. There is a fracture of the right naso maxillary suture at the juncture of the right nasal process of maxilla. There is a fracture of the anterior wall of the right maxillary sinus. There are comminuted ethmoidal lamina papyracea fractures with significant intra orbital air. There is widening of the nasofrontal suture. And there is a fracture SOFT TISSUES: There is extensive subcutaneous facial and intraorbital air due to the fractures. There is diffuse soft tissue swelling. SINUSES: Air-fluid levels in the maxillary sinuses bilaterally in keeping with acute fractures. NASAL CAVITY: Midline nasal septum. ORBITS: No significant abnormalities visualized. TMJ: There is a nasal septal fracture. There is mild associated hematoma. There is a fracture of the anterior maxilla MASTOIDS: Well-aerated. IACs symmetric, grossly normal. BRAIN: Limited view. No acute findings. OTHER: No other significant finding. IMPRESSION: Multiple acute facial bone fractures centered particularly around the face and nasal bones.. THIS IS AN ELECTRONICALLY VERIFIED FINAL REPORT 11/13/2024 1:12 PM - Electronically signed by Juan Miguel Whitten M.D. LC: MONICA Report ID: [id number] Reading Location: [id number] Procedure Note Kitty Whitten MD - 11/13/2024 EXAM DESCRIPTION: CT FACIAL BONES WO CONTRAST REASON FOR STUDY: Maxillofacial pain, Facial trauma, blunt Fall today, LOC, has forehead laceration and nose bleed, denies neck pain TECHNIQUE: Noncontrast computed tomography images through the paranasal sinuses. Reconstructed MPR images reviewed. All images stored on PACS. Automated exposure control was used as a dose optimization technique forthis examination. COMPARISON: Head CT comparison from today. FINDINGS: BONES: Multiple acute facial bone fractures are identified. There is a mildly displaced fracture of the left lateral orbital wall. There are bilateral nasal bone fractures. There is a fracture of the anterior nasal septum. There is a fracture of the right naso maxillary suture at the juncture of the right nasal process of maxilla. There is a fracture ofthe anterior wall of the right maxillary sinus. There are comminutedethmoidal lamina papyracea fractures with significant intra orbital air. There is widening of the nasofrontal suture. And there is a fracture SOFT TISSUES: There is extensive subcutaneous facial and intraorbitalair due to the fractures. There is diffuse soft tissue swelling. SINUSES: Air-fluid levels in the maxillary sinuses bilaterally inkeeping with acute fractures. NASAL CAVITY: Midline nasal septum. ORBITS: No significant abnormalities visualized. TMJ: There is a nasal septal fracture. There is mild associatedhematoma. There is a fracture of the anterior maxilla MASTOIDS: Well-aerated. IACs symmetric, grossly normal. BRAIN: Limited view. No acute findings. OTHER: No other significant finding. IMPRESSION: Multiple acute facial bone fractures centered particularly around the faceand nasal bones.. THIS IS AN ELECTRONICALLY VERIFIED FINAL REPORT 11/13/2024 1:12 PM - Electronically signed by Juan Miguel Whitten M.D. LC: MONICA Report ID: [id number] Reading Location: [id number] us Tim Prater MD IMG CT PROCEDURES Final Res ult * CT Head WO Contrast (11/13/2024 11:55 AM SATURATOR OPERATOR) Anatomical Region Laterality Modality Head and Neck N/A Computed Tomogra phy 11/13/2024 12:3 6 PM SATURATOR OPERATOR Narrative 11/13/2024 12:40 PM SATURATOR OPERATOR EXAM DESCRIPTION: CT HEAD WO CONTRAST REASON FOR STUDY: Mental status change, unknown cause, fall with significant head injury, broken nose, right eye swelling left frontal lac 10 cm Fall today, LOC, has forehead laceration and nose bleed, denies neck pain TECHNIQUE: Axial images acquired through the brain without intravenous contrast. Images stored on PACS. Automated exposure control was used as a dose optimization technique for this examination. COMPARISON: No comparison. FINDINGS: BRAIN: No hemorrhage, edema or mass effect. No recent infarct. Normal white matter. EXTRA-AXIAL SPACES: No fluid collections. No masses. CALVARIUM: No fracture. SINUSES/MASTOIDS: Multiple acute facial bone fractures. Please correlate with facial bone CT separately dictated. ORBITS: Intraconal air due to facial fracture. Please correlate with facial bone CT separately dictated. OTHER: No other significant abnormality. IMPRESSION: No acute intracranial findings. Multiple acute facial bone fractures. Please correlate with facial bone CT separately dictated. THIS IS AN ELECTRONICALLY VERIFIED FINAL REPORT 11/13/2024 12:40 PM - Electronically signed by Juan Miguel Whitten M.D. LC: MONICA Report ID: [id number] Reading Location: [id number] Procedure Note Kitty Whitten MD - 11/13/2024 EXAM DESCRIPTION: CT HEAD WO CONTRAST REASON FOR STUDY: Mental status change, unknown cause, fall withsignificant head injury, broken nose, right eye swelling left frontal lac 10 cm Fall today, LOC, has forehead laceration and nose bleed, denies neck pain TECHNIQUE: Axial images acquired through the brain without intravenous contrast. Images stored on PACS. Automated exposure control was used asa dose optimization technique for this examination. COMPARISON: No comparison. FINDINGS: BRAIN: No hemorrhage, edema or mass effect. No recent infarct. Normal white matter. EXTRA-AXIAL SPACES: No fluid collections. No masses. CALVARIUM: No fracture. SINUSES/MASTOIDS: Multiple acute facial bone fractures. Pleasecorrelate with facial bone CT separately dictated. ORBITS: Intraconal air due to facial fracture. Please correlate withfacial bone CT separately dictated. OTHER: No other significant abnormality. IMPRESSION: No acute intracranial findings. Multiple acute facial bone fractures.Please correlate with facial bone CT separately dictated. THIS IS AN ELECTRONICALLY VERIFIED FINAL REPORT 11/13/2024 12:40 PM - Electronically signed by Juan Miguel Whitten M.D. LC: MONICA Report ID: [id number] Reading Location: [place] [address] Tim Prater MD IMG CT PROCEDURES Final Res ult * eGFR (11/13/2024 11:17 AM SATURATOR OPERATOR) eGFR 86 >=60 mL/min/1. 73 m2 Comment: Interpretive Data Reference Interval Normal >/= 90 mL/min/1.73m2 Mildly decreased* 60 - 89 mL/min/1.73m2 Mildly to moderately decreased 45 - 59 mL/min/1.73m2 Moderately to severely decreased 30 - 44 mL/min/1.73m2 Severely decreased 15 - 29 mL/min/1.73m2 Kidney Failure < 15 mL/min/1.73m2 *Relative to young adult level Estimated glomerular filtration rate is determined by the 2020 CKD-EPI equation recommended by the National Kid[employer] (A Unifying Approach to GFR Estimation: Recommendations of the NKF-ASK Task Force on Reassessing the Inclusion of Race in Diagnosing Kidney Disease, JASN 2020). The CKD-EPI equation should not be used for patients with unstable renal function and has not been validated in children and those over 70. Current interpretive data was last reviewed 2021. Blood 11/13/2024 11:1 7 AM SATURATOR OPERATOR 11/13/2024 11:21 AM SATURATOR OPERATOR Tim Prater MD LAB BLOOD ORDERABLES Final Result [facility] [place] [place] [address] * (ABNORMAL) Differential, auto (11/13/2024 11:17 AM SATURATOR OPERATOR) Neutrophil abs 7.7(H) 1.5 - 6.5 K/cumm Imm gran abs 0.1 0.0 - 0.1 K/cumm [facility] ([place]) Lymphocyte abs 1.1 0.8 - 3.3 K/cumm [facility] ([place]) Monocyte abs 0.6 0.2 - 0.8 K/cumm [facility] ([place]) Eosinophil abs 0.4 0.0 - 0.5 K/cumm [facility] ([place]) Basophil abs 0.1 0.0 - 0.1 K/cumm [facility] ([place]) Neutrophil pct 77.2 % [facility] ([place]) Comment: Interpretive Data Percent cell count reference ranges are not reported, since discordance with absolute values may lead to misinterpretation of CBC data. Current Interpretive Data was last revised on 2018. Imm gran pct 0.5 % [facility] ([place]) Comment: Interpretive Data Percent cell count reference ranges are not reported, since discordance with absolute values may lead to misinterpretation of CBC data. Current Interpretive Data was last revised on 2018. Lymphocyte pct 11.1 % [facility] ([place]) Comment: Interpretive Data Percent cell count reference ranges are not reported, since discordance with absolute values may lead to misinterpretation of CBC data. Current Interpretive Data was last revised on 2018. Monocyte pct 6.3 % [facility] ([place]) Comment: Interpretive Data Percent cell count reference ranges are not reported, since discordance with absolute values may lead to misinterpretation of CBC data. Current Interpretive Data was last revised on 2018. Eosinophil pct 4.1 % [facility] ([place]) Comment: Interpretive Data Percent cell count reference ranges are not reported, since discordance with absolute values may lead to misinterpretation of CBC data. Current Interpretive Data was last revised on 2018. Basophil pct 0.8 % [facility] ([place]) Comment: Interpretive Data Percent cell count reference ranges are not reported, since discordance with absolute values may lead to misinterpretation of CBC data. Current Interpretive Data was last revised on 2018. Blood 11/13/2024 11:1 7 AM SATURATOR OPERATOR 11/13/2024 11:21 AM SATURATOR OPERATOR Tmi Prater MD LAB BLOOD ORDERABLES Final Result [facility] ([place]) 1 [facility] Department [place] [address] * (ABNORMAL) CBC with auto differential (11/13/2024 11:17 AM SATURATOR OPERATOR) WBC 10.0(H) 3.8 - 9.9 K/cumm Hgb 11.1(L) 13.0 - 17.5 g/dL [facility] ([place]) Hct 35.3(L) 38.9 - 50.3 % [facility]) Plt 232 150 - 400 K/cumm [facility] ([place]) MPV 9.1 9.1 - 12.3 fL [facility] ([place]) RBC 4.46 4.30 - 5.80 M/cumm [facility] ([place]) MCV 79.1(L) 81.3 - 96.4 fL [facility] ([place]) MCH 24.9(L) 27.1 - 33.3 pg [facility] ([place]) MCHC 31.4(L) 32.3 - 35.7 g/dL [facility] ([place]) RDW CV 14.8 11.1 - 14.9 % [facility] ([place]) RDW SD 42.4 35.7 - 48.1 fL [facility] ([place]) NRBC abs 0.02(H) 0.00 - 0.01 K/cumm [facility] ([place]) Blood 11/13/2024 11:1 7 AM SATURATOR OPERATOR 11/13/2024 11:21 AM SATURATOR OPERATOR us Tim Prater MD LAB BLOOD ORDERABLES Final Result Performing Organization Address City/[facility]/ZIP Co de Phone Number [facility] ([place]) 1 [facility] Department [place] [address] * Magnesium (11/13/2024 11:17 AM SATURATOR OPERATOR) Magnesium 1.5 1.4 - 2.5 mg/dL Blood 11/13/2024 11:1 7 AM SATURATOR OPERATOR 11/13/2024 11:21 AM SATURATOR OPERATOR us Tim Prater MD LAB BLOOD ORDERABLES Final Result [facility] ([place]) 1 [facility] Department [place] [address] * (ABNORMAL) Comprehensive metabolic panel (11/13/2024 11:17 AM SATURATOR OPERATOR) Sodium 135 135 - 145 mmol/L Potassium, pl 3.4 3.3 - 4.9 mmol/L [facility]) Chloride 101 97 - 110 mmol/L [facility]) CO2 24 22 - 32 mmol/L [facility]) Anion gap 10 2 - 15 mmol/L [facility] ([place]) BUN 13 6 - 25 mg/dL [facility] ([place]) Creatinine 1.01 0.80 - 1.30 mg/dL [facility]) Glucose 157 70 - 199 mg/dL [facility] ([place]) Comment: Interpretive Data Fasting glucose >/= 126 mg/dl is diagnostic for diabetes. Fasting is defined as no caloric intake for at least 8 hours. Fasting glucose between 100 mg/dl to 125 mg/dl is diagnostic of prediabetes. In a patient with classic symptoms of hyperglycemia or hyperglycemic crisis, a random glucose >/= 200 mg/dl is diagnostic for diabetes. In the absence of unequivocal hyperglycemia, results should be confirmed by repeat testing. The classification and Diagnosis of Diabetes Diabetes Care 2021; 46: S19-S40. Current interpretive data was last revised 2022. Calcium 8.6 8.5 - 10.3 mg/dL [facility]) Bilirubin, total 0.4 0.1 - 1.2 mg/dL [facility] ([place]) Protein, pl 6.4(L) 6.5 - 8.5 g/dL [facility] ([place]) Albumin 4.1 3.5 - 5.0 g/dL [facility] ([place]) Alk phos 60 40 - 130 Units/L [facility] ([place]) ALT 12 7 - 55 Units/L [facility] ([place]) AST 14 10 - 50 Units/L [facility] ([place]) Blood 11/13/2024 11:1 7 AM SATURATOR OPERATOR 11/13/2024 11:21 AM SATURATOR OPERATOR Tim Prater MD LAB BLOOD ORDERABLES Final Result Performing Organization Address City/[facility] Co de Phone Number [facility] ([place] 1 [facility] [place] [address] * ECG 12 lead (11/13/2024 10:50 AM SATURATOR OPERATOR) 11/13/2024 10:5 0 AM SATURATOR OPERATOR Narrative [facility] - 11/15/2024 10:54 AM SATURATOR OPERATOR Vent Rate: 64 bpm RR Interval: 936 msec [place] Interval: 147 msec QRS Duration: 88 msec QT Interval: 382 msec QTC Interval: 391 msec P-R-T [place]: 44 - 52 - 72 degrees IMPRESSION: SINUS RHYTHM NORMAL ECG Electronically Signed By: Girma Donnelly MD [facility] Tim Prater MD ECG ORDERABLES Final Resul t Performing Organization Address City/[facility] Co de Phone Number [facility] from Last 3 Months [facility] Advance Directives For more information, please contact: [phone] * Full Code (Latest Code Status on File) Date Activated Date Inactivated Comments 11/14/2024 2:33 AM 11/16/2024 7:47 PM Care Teams Torpedo Man Relationship Specialty Start Date End Date Ander Macias DO [address] [place] [address] PCP - General Family Medicine 11/17/24 Ander Macias DO [address] [place] [address] Referring Physician Family Medicine 11/16/24
--- OUTSIDE RECORDS SUMMARY | 2025-01-18 10:53 | XMS_ITS | Clinical Summary ---
Author Organization [facility] Address [address] [place] [address] Care Team Providers [employer] Name Role Phone Ander Macias DO Unavailable [phone] Ander Macias DO Primary Care Provider Allergies No known active allergies Medications acetaminophen (TYLENOL) 325 mg tabletIndicatio ns:Pain Take 2 tablets (650 mg total) by mouth every 6 (six) hours 30 tablet 4 Active Additional Information Patient not taking.Reported on 01/04/2025 polyethylene glycol (MIRALAX) 17 gram/dose bulk powderIndicatio ns:constipation Take 17 g by mouth daily 510 g Active senna-docusate (PERICOLACE) 8.6-50 mgIndications:c onstipation Take 1 tablet by mouth 2 (two) times a day 30 tablet 4 Active Additional Information Patient not taking.Reported on 01/04/2025 sodium chloride (OCEAN) 0.65 % nasal spray Administer 2 sprays into each nostril 4 (four) times a day 15 mL 4 Active Additional Information Patient not taking.Reported on 01/04/2025 oxyCODONE (ROXICODONE) 5 mg immediate release tabletIndicatio ns:Pain Take 1 tablet (5 mg total) by mouth every 4 (four) hours as needed for pain 10 tablet 4 Active Additional Information Patient not taking.Reported on 01/04/2025 Active Problems Problem Noted Date Diagnosed Date Discharge planning issues 11/15/2024 Assessment & Plan (11/16/2024 10:15 AM ECG TECHNICIAN): 11/15 MRI 11/16 Patient is medically stable for discharge, /CM updated. Discharge pending mobile rx and ride from family Health Insurance Coverage: [employer] Prescription Coverage: Yes Pharmacy: No Pharmacies ListedCM intake pending Needs assistance with community resources 2023 Assessment & Plan (11/15/2024 12:18 PM ECG TECHNICIAN): 11/15 tasked for PCP in outpatient for TTE. Syncope most liekly vasovagal but will look at cardiac etiologies. Orbital fracture ([facility]) 11/14/2024 Assessment & Plan (11/15/2024 6:45 AM ECG TECHNICIAN): - Imaging Fractures: left lateral orbital wall, [...] VB Assessment & Plan (11/15/2024 12:13 PM ECG TECHNICIAN): #Anterior inferior corner fractures of C3 and C5 vertebral bodies -Orthopedic spine consult - Nano Marie cervical collar at all times Follow Up not yet scheduled but will be at [facility] Facial fracture 11/14/2024 Assessment & Plan (11/15/2024 6:47 AM ECG TECHNICIAN): - Imaging Fractures: left lateral orbital wall, [...] pain control E[facility]: Call [phone] to make an appointment. Our offices are located at [facility] [address] [place] [address] OR [facility] Otolaryngology [facility] [address] [place] [address] Fall 11/14/2024 Assessment & Plan (11/16/2024 6:27 AM ECG TECHNICIAN): - Syncopal fall after donating blood today, plus HS, plus LOC. Endorses history of lightheadedness - OSVS 11/15 negative - TTE outpatient Fall, initial encounter 11/13/2024 Encounters Date Type Department Care Team Description 01/04/2025 8:20 AM ECG TECHNICIAN Office Visit [facility] Advanced [facility] ([facility]) - [facility] ENT [address] [place] [address] [place] [id number] Vikram Chan MD Nasal obstruction (Primary Dx); Nasal valve collapse; Nasal septal deviation; Open fracture of nasal septum, sequela; Late effect of closed fracture of facial bone (CMS/HCC) (HCC); Closed fracture of nasal bone, sequela; Hypertrophy of inferior nasal turbinate 12/06/[address] [facility] ([facility]) - [facility] ENT [address] [facility] [address]th [place] [address] [place] [address] Ita Ward MS 11/17/2024 Telephone [facility] Orthopaedic Surgery [address] [facility] 6th [place] [address] [place] [phone] Hubert Rodgers MD Scheduling Appointments; Follow-up 11/16/2024 Telephone [facility] Ophthalmology [address] [place] [address] 1st [place] [phone] Marleni Frank MD Patient Education 11/13/2024 2:51 PM ECG TECHNICIAN - 11/16/2024 3:35 PM ECG TECHNICIAN Hospital Encounter [address] [phone] Samantha Sharma MD Sensing, Thomas Anderson, DO Closed fracture of cervical vertebra, unspecified cervical vertebral level, initial encounter (HCC) (Primary Dx); Fall, initial encounter; Closed fracture of facial bone due to fall, initial encounter (HCC) Discharge Disposition: Discharge to home or self care 11/13/2024 2:08 PM ECG TECHNICIAN - 11/13/2024 11:59 PM ECG TECHNICIAN Hospital Encounter [facility] AMBULANCE BILLING Emergency, Room R Discharge Disposition: Discharge to home or self care 11/13/2024 10:52 AM ECG TECHNICIAN - 11/13/2024 2:09 PM [facility] Emergency [facility] Emergency Department [address] [place] [address] Tim Prater MD Closed nondisplaced fracture of third cervical vertebra, unspecified fracture morphology, initial encounter (HCC) (Primary Dx); Open fracture of facial bone due to fall, initial encounter (HCC); Vasovagal syncope Discharge Disposition: Discharge to not defined facility 11/13/2024 10:32 AM ECG TECHNICIAN - 11/13/2024 11:59 PM ECG TECHNICIAN Hospital Encounter [facility] AMBULANCE BILLING Emergency, Room R Discharge Disposition: Discharge to home or self care 11/13/2024 Ophth Exam [facility] Ophthalmology [address] [place] [address] 1[address] [place] [address] Vikram Shelby MD from Last 3 Months Social History Tobacco Use Types Packs/Day Years [...] on file Legal Sex Male 10:00 AM ECG TECHNICIAN Gender Identity Not on file Sexual Orientation Not on file Obstetrics History Last Filed Vital Signs Vital Sign Reading Time Taken Comments Blood Pressure 117/74 11/16/2024 12:09 PM ECG TECHNICIAN Pulse 89 11/16/2024 12:09 PM ECG TECHNICIAN Temperature 36.7 C (98.1 F) 11/16/2024 12:09 PM ECG TECHNICIAN Respiratory Rate 18 11/16/2024 12:09 PM ECG TECHNICIAN Oxygen Saturation 100% 11/16/2024 12:09 PM ECG TECHNICIAN Inhaled Oxygen Concentration - - Weight 75.8 kg (167 lb) 11/14/2024 2:30 AM ECG TECHNICIAN Height 172.7 cm (5' 7.99 ) 11/14/2024 2:30 AM CS T Body Mass Index 25.4 11/14/2024 2:30 AM ECG TECHNICIAN Plan of Treatment Health Maintenance Due Date Last Done Comments Colon Cancer Screening-Colonoscopy 1966 Depression Screening 1966 Hepatitis C Screening 1966 Prostate Cancer Screening-PSA 1966 DTaP/Tdap/Td Vaccine (1 - Tdap) 1977 Hepatitis B Screening 1984 Regular Well Visit/Exam 18-64 1984 Zoster Vaccine (1 of 2) 2016 Influenza Vaccine (#1) 2024 Pneumococcal vaccine <65 Aged Out No longer eligible based on patient's age to complete this topic Procedures Procedure Name Priority Date/Time Associated Diagnosis Comments EGFR Routine 11/15/2024 10:07 PM ECG TECHNICIAN BASIC METABOLIC PANEL Routine 11/15/2024 10:07 PM ECG TECHNICIAN CBC WITHOUT DIFFERENTIAL Routine 11/15/2024 10:07 PM ECG TECHNICIAN MAGNESIUM Routine 11/15/2024 10:07 PM ECG TECHNICIAN PHOSPHORUS Routine 11/15/2024 10:07 PM ECG TECHNICIAN XR SCOLIOSIS AP LAT ED Urgent/IP Urgent 11/15/2024 8:40 AM ECG TECHNICIAN EGFR Routine 11/14/2024 10:11 PM ECG TECHNICIAN BASIC METABOLIC PANEL Routine 11/14/2024 10:11 PM ECG TECHNICIAN CBC WITHOUT DIFFERENTIAL Routine 11/14/2024 10:11 PM ECG TECHNICIAN MAGNESIUM Routine 11/14/2024 10:11 PM ECG TECHNICIAN PHOSPHORUS Routine 11/14/2024 10:11 PM ECG TECHNICIAN URINALYSIS AND REFLEX TO MICROSCOPIC AND CULTURE Routine 11/14/2024 4:39 PM ECG TECHNICIAN XR ABDOMEN AP 1 VIEW ED Urgent/IP Urgent 11/14/2024 1:45 PM ECG TECHNICIAN MRI CERVICAL SPINE WO CONTRAST ED 11/14/2024 1:56 AM ECG TECHNICIAN URINALYSIS AND REFLEX TO MICROSCOPIC AND CULTURE STAT 11/14/2024 12:[address] THORACIC AND LUMBAR SPINE WO CONTRAST ED Urgent/IP Urgent 11/13/2024 11:00 PM ECG TECHNICIAN XR CHEST 1 VIEW ED 11/13/2024 5:09 PM ECG TECHNICIAN XR SPINE LUMBAR 2 OR 3 VIEWS ED 11/13/2024 5:08 PM ECG TECHNICIAN XR PELVIS 1 OR 2 VIEWS ED 11/13/2024 5:08 PM ECG TECHNICIAN XR SPINE THORACIC 3 VIEWS ED 11/13/2024 5:08 PM ECG TECHNICIAN XR SPINE CERVICAL 2 OR 3 VIEWS ED Urgent/IP Urgent 11/13/2024 5:08 PM ECG TECHNICIAN TYPE AND SCREEN STAT 11/13/2024 4:23 PM ECG TECHNICIAN PROTIME-INR STAT 11/13/2024 4:23 PM ECG TECHNICIAN APTT STAT 11/13/2024 4:23 PM ECG TECHNICIAN ED LACERATION REPAIR Routine 11/13/2024 1:[address] CERVICAL SPINE WO CONTRAST ED 11/13/2024 11:[address] FACIAL BONES WO CONTRAST ED 11/13/2024 11:[address] HEAD WO CONTRAST ED 11/13/2024 1 1:55 AM ECG TECHNICIAN EGFR STAT 11/13/2024 11:17 AM ECG TECHNICIAN DIFFERENTIAL AUTO STAT 11/13/2024 11: 17 AM ECG TECHNICIAN MAGNESIUM Routine 11/13/2024 11:17 AM ECG TECHNICIAN COMPREHENSIVE METABOLIC PANEL STAT 11/13/2024 11:17 AM ECG TECHNICIAN CBC WITH AUTO DIFFERENTIAL STAT 11/13/2024 11:17 AM ECG TECHNICIAN ECG 12-LEAD Routine 11/13/2024 10:50 AM ECG TECHNICIAN from Last 3 Months Results * eGFR (11/15/2024 10:07 PM ECG TECHNICIAN) eGFR 70 >=60 mL/min/1. 73 m2 Comment: [...] reviewed 2021. Blood 11/15/2024 10:0 7 PM ECG TECHNICIAN 11/15/2024 10:20 PM ECG TECHNICIAN Camden Enrique [facility] DO LAB BLOOD ORDERABLES Final Result [facility] [address] [facility] Department [place] [address] * (ABNORMAL) CBC without differential (11/15/2024 10:07 PM ECG TECHNICIAN) WBC 9.3 3.8 - 9.9 K/cumm Hgb 10.5(L) 13.0 - 17.5 g/dL [facility] Hct 33.4(L) 38.9 - 50.3 % [facility] Plt 259 150 - 400 K/cumm [facility] MPV 9.5 9.1 - 12.3 fL [facility] RBC 4.24(L) 4.30 - 5.80 M/cumm [facility] MCV 78.8(L) 81.3 - 96.4 fL [facility] MCH 24.8(L) 27.1 - 33.3 pg [facility] MCHC 31.4(L) 32.3 - 35.7 g/dL [facility] RDW CV 15.3(H) 11.1 - 14.9 % [facility] RDW SD 43.4 35.7 - 48.1 fL [facility] NRBC abs 0.00 0.00 - 0.01 K/cumm [facility] Blood 11/15/2024 10:0 7 PM ECG TECHNICIAN 11/15/2024 10:21 PM ECG TECHNICIAN [facility] DO LAB BLOOD ORDERABLES Final Result Performing Organization Address City/[facility] Co de Phone Number [facility] [place] [address] * Phosphorus (11/15/2024 10:07 PM ECG TECHNICIAN) [facility] Phosphorus, pl 3.8 2.3 - 4.5 mg/dL Blood 11/15/2024 10:0 7 PM ECG TECHNICIAN 11/15/2024 10:20 PM ECG TECHNICIAN [facility] DO LAB BLOOD ORDERABLES Final Result Performing Organization Address [facility] de Phone Number [facility] [place] [address] * Magnesium (11/15/2024 10:07 PM ECG TECHNICIAN) [facility] Magnesium 2.0 1.4 - 2.5 mg/dL Blood 11/15/2024 10:0 7 PM ECG TECHNICIAN 11/15/2024 10:20 PM ECG TECHNICIAN [facility] DO LAB BLOOD ORDERABLES Final Result Performing Organization Address [facility] [place] [address] * Basic metabolic panel (11/15/2024 10:07 PM ECG TECHNICIAN) [facility] Sodium 138 135 - 145 mmol/L Potassium, pl 4.2 3.3 - 4.9 mmol/L [facility] Chloride 101 97 - 110 mmol/L [facility] CO2 29 22 - 32 mmol/L [facility] Anion gap 8 2 - 15 mmol/L [facility] BUN 19 6 - 25 mg/dL [facility] Creatinine 1.20 0.80 - 1.30 mg/dL [facility] Glucose 113 70 - 199 mg/dL [facility] Comment: Interpretive Data Fasting glucose >/= 126 [...] 2022. Calcium 9.7 8.5 - 10.3 mg/dL [facility] Blood 11/15/2024 10:0 7 PM ECG TECHNICIAN 11/15/2024 10:20 PM ECG TECHNICIAN us [facility] LAB BLOOD ORDERABLES Final Result [facility] [address] [facility] Department [place] [address] * XR Scoliosis Ap and Lateral (11/15/2024 8:40 AM ECG TECHNICIAN) Anatomical Region Laterality Modality Spine N/A Computed Radiogr aphy 11/15/2024 11:0 9 AM ECG TECHNICIAN Impressions 11/15/2024 11:54 AM ECG TECHNICIAN 1. Unchanged anterior inferior corner fractures of C3 and C5. 2. Mild multilevel degenerative disc disease of the thoracolumbar spine with mild anterior sagittal imbalance. Dictated by: Jannet George MD The radiology attending physician has personally reviewed this study, and had reviewed and/or edited this written report and agrees with it. Electronically signed by: Zander Melendez M.D. Narrative 11/15/2024 11:54 AM ECG TECHNICIAN EXAMINATION: XR SCOLIOSIS AP AND LATERAL HISTORY: [...] of the thoracolumbar spine. Procedure Note Zander Melnedez MD - 11/15/2024 EXAMINATION: XR SCOLIOSIS AP [...] it. Electronically signed by: Zander Melendez M.D. [facility] DO IMG XR PROCEDURES Fin al Result * eGFR (11/14/2024 10:11 PM ECG TECHNICIAN) eGFR 86 >=60 mL/min/1. 73 m2 Comment: [...] of Race in Diagnosing Kidney Disease, JASN 202). The CKD-EPI equation should not be used for patients with unstable renal function and has not been validated in children and those over 70. Current interpretive data was last reviewed 2021. Blood 11/14/2024 10:1 1 PM ECG TECHNICIAN 11/14/2024 10:44 PM ECG TECHNICIAN Camden Enrique [facility]ensing DO LAB BLOOD ORDERABLES Final Result [facility] [address] [facility] Department [place] [address] * (ABNORMAL) CBC without differential (11/14/2024 10:11 PM ECG TECHNICIAN) WBC 9.2 3.8 - 9.9 K/cumm Hgb 10.3(L) 13.0 - 17.5 g/dL [facility] Hct 32.7(L) 38.9 - 50.3 % [facility] Plt 250 150 - 400 K/cumm [facility] MPV 9.8 9.1 - 12.3 fL [facility] RBC 4.19(L) 4.30 - 5.80 M/cumm [facility] MCV 78.0(L) 81.3 - 96.4 fL [facility] MCH 24.6(L) 27.1 - 33.3 pg [facility] MCHC 31.5(L) 32.3 - 35.7 g/dL [facility] RDW CV 15.2(H) 11.1 - 14.9 % [facility] RDW SD 42.3 35.7 - 48.1 fL [facility] NRBC abs 0.00 0.00 - 0.01 K/cumm [facility] Blood 11/14/2024 10:1 1 PM ECG TECHNICIAN 11/14/2024 10:44 PM ECG TECHNICIAN [facility] DO LAB BLOOD ORDERABLES Final Result Performing Organization Address City/[facility] Co de Phone Number [facility] [place] [address] * Phosphorus (11/14/2024 10:11 PM ECG TECHNICIAN) [facility] Phosphorus, pl 3.2 2.3 - 4.5 mg/dL Blood 11/14/2024 10:1 1 PM ECG TECHNICIAN 11/14/2024 10:44 PM ECG TECHNICIAN [facility] DO LAB BLOOD ORDERABLES Final Result Performing Organization Address [facility] de Phone Number [facility] Department [place] [address] * Magnesium (11/14/2024 10:11 PM ECG TECHNICIAN) [facility] Magnesium 2.0 1.4 - 2.5 mg/dL Blood 11/14/2024 10:1 1 PM ECG TECHNICIAN 11/14/2024 10:44 PM ECG TECHNICIAN [facility] DO LAB BLOOD ORDERABLES Final Result Performing Organization Address [facility] de Phone Number [facility] [place] [address] * Basic metabolic panel (11/14/2024 10:11 PM ECG TECHNICIAN) [facility] Sodium 141 135 - 145 mmol/L Potassium, pl 3.7 3.3 - 4.9 mmol/L [facility] Chloride 106 97 - 110 mmol/L [facility] CO2 27 22 - 32 mmol/L [facility] Anion gap 8 2 - 15 mmol/L [facility] BUN 13 6 - 25 mg/dL [facility] Creatinine 1.01 0.80 - 1.30 mg/dL [facility] Glucose 106 70 - 199 mg/dL [facility] Comment: Interpretive Data Fasting glucose >/= 126 [...] 2022. Calcium 9.0 8.5 - 10.3 mg/dL [facility] Blood 11/14/2024 10:1 1 PM ECG TECHNICIAN 11/14/2024 10:44 PM ECG TECHNICIAN Camden Guerrero DO LAB BLOOD ORDERABLES Final Result [facility] Department [place] [address] * Urinalysis reflex to microscopic and culture Urine, clean voided (11/14/2024 4:39 PM ECG TECHNICIAN) Color, ur Straw Yellow Clarity, ur Clear Clear [facility] Specific gravity, ur 1.017 1.003 - 1.030 [facility] pH, urine 7.0 [facility] Comment: Interpretive Data U rine pH is affected by diet, medications, systemic acid-base disturbances, and renal tubular function. pH may affect urinary stone formation. For example, urine pH below 6.0 may help reduce the tendency for calcium phosphate stones and pH greater than 6.0 may reduce the tendency for uric acid stone formation. Source: [facility] [employer] Current Interpretive Data was last revised on 2017 Protein, ur ql Negative Negative [facility] Glucose, ur ql Negative Negative [facility] Ketones, ur Negative Negative [facility] Bilirubin, ur Negative Negative [facility] Blood, ur Negative Negative [facility] Urobilinogen, ur <2.0 <2.0 mg/dL [facility] Nitrite, ur Negative Negative [facility] Leukocyte esterase, ur Negative Negative [facility] UA reflex comment Reflex conditions for microscopic UA and culture not met. [facility] Urine, clean voided 11/14/2024 4:39 PM ECG TECHNICIAN 11/14/2024 4:48 PM ECG TECHNICIAN us Camden Enrique Sensing DO LAB MICROBIOLOGY - GE NERAL ORDERABLES Final Result [facility] Department [place] [address] * XR Abdomen Ap 1 Vw (11/14/2024 1:45 PM ECG TECHNICIAN) Anatomical Region Laterality Modality Body, Abdomen N/A Computed Radiogr aphy 11/15/2024 11:4 6 AM ECG TECHNICIAN Impressions 11/15/2024 12:07 PM ECG TECHNICIAN A single view of the abdomen is [...] Yusef Guillen M.D. Narrative 11/15/2024 12:07 PM ECG TECHNICIAN EXAMINATION: Abdomen, one view. HISTORY: Nausea and [...] it. Electronically signed by: Yusef Guillen M.D. us Camden Enrique [facility]ensing DO IMG XR PROCEDURES Fin al Result * MRI Cervical Spine WO Contrast (11/14/2024 1:56 AM ECG TECHNICIAN) Anatomical Region Laterality Modality Spine N/A Magnetic Resonan ce 11/14/2024 8:51 AM ECG TECHNICIAN Impressions 11/14/2024 8:51 AM ECG TECHNICIAN 1. Nondisplaced anterior inferior corner fractures at [...] Tim Sharma MD Narrative 11/14/2024 8:51 AM ECG TECHNICIAN EXAMINATION: Magnetic resonance imaging (MRI) of the cervical spine without contrast HISTORY: Trauma, fall. TECHNIQUE: Multiplanar multi-weighted MRI of the cervical spine was performed without intravenous contrast using the standard protocol. COMPARISON: CT 11/13/2024 [facility] FINDINGS: Normal craniocervical junction and visualized posterior [...] using the standard protocol. COMPARISON: CT 11/13/2024 [facility] FINDINGS: Normal craniocervical junction and visualized posterior [...] above. Electronically signed by: Tim Sharma MD [facility] Sensing DO IMG MRI PROCEDURES Fi nal Result * Urinalysis reflex to microscopic and culture Urine (11/14/2024 12:16 AM ECG TECHNICIAN) Color, ur Straw Yellow Clarity, ur Clear Clear [facility] Specific gravity, ur 1.019 1.003 - 1.030 [facility] pH, urine 6.5 [facility] Comment: Interpretive Data U rine pH is affected by diet, medications, systemic acid-base disturbances, and renal tubular function. pH may affect urinary stone formation. For example, urine pH below 6.0 may help reduce the tendency for calcium phosphate stones and pH greater than 6.0 may reduce the tendency for uric acid stone formation. Source: [facility] Current Interpretive Data was last revised on 2017 Protein, ur ql Negative Negative [facility] Glucose, ur ql Negative Negative [facility] Ketones, ur Trace Negative [facility] Bilirubin, ur Negative Negative [facility] Blood, ur Negative Negative [facility] Urobilinogen, ur <2.0 <2.0 mg/dL [facility] Nitrite, ur Negative Negative [facility] Leukocyte esterase, ur Negative Negative [facility] UA reflex comment Reflex conditions for microscopic UA and culture not met. [facility] Urine 11/14/2024 12:1 6 AM ECG TECHNICIAN 11/14/2024 12:25 AM ECG TECHNICIAN Melanie Hays MD LAB MICROBIOLOGY - GENERAL ORDERABLES Final Result [facility] Department [place] [address] * CT Thoracic and Lumbar Spine WO Contrast (11/13/2024 11:00 PM ECG TECHNICIAN) Anatomical Region Laterality Modality Spine N/A Computed Tomogra phy 11/14/2024 12:5 3 AM ECG TECHNICIAN Impressions 11/14/2024 7:46 AM ECG TECHNICIAN 1. No acute fracture in the thoracic or lumbar spine. 2. Partially imaged C5 vertebral body fracture, better evaluated on prior cervical spine CT. Dictated by: Sharad Tiwari MD The radiology attending physician has personally reviewed this study, and had reviewed and/or edited this written report and agrees with it. Electronically signed by: Tim Sharma MD Narrative 11/14/2024 7:46 AM ECG TECHNICIAN EXAMINATION: 1. CT of the thoracic spine [...] XR Chest 1 View (11/13/2024 5:09 PM ECG TECHNICIAN) Anatomical Region Laterality Modality Body, Chest N/A Computed Radiogr aphy 11/13/2024 5:39 PM ECG TECHNICIAN Impressions 11/13/2024 6:03 PM ECG TECHNICIAN 1. Unchanged anterior inferior corner fractures at [...] Duncan Ram M.D. Narrative 11/13/2024 6:03 PM ECG TECHNICIAN EXAMINATION: XR SPINE CERVICAL 2 OR 3 [...] 2 or 3 Views (11/13/2024 5:08 PM ECG TECHNICIAN) Anatomical Region Laterality Modality Spine N/A Computed Radiogr aphy 11/13/2024 5:39 PM ECG TECHNICIAN Impressions 11/13/2024 6:03 PM ECG TECHNICIAN 1. Unchanged anterior inferior corner fractures at [...] Duncan Ram M.D. Narrative 11/13/2024 6:03 PM ECG TECHNICIAN EXAMINATION: XR SPINE CERVICAL 2 OR 3 [...] 1 or 2 Views (11/13/2024 5:08 PM ECG TECHNICIAN) Anatomical Region Laterality Modality Body, Pelvis N/A Computed Radiogr aphy 11/13/2024 5:39 PM ECG TECHNICIAN Impressions 11/13/2024 6:03 PM ECG TECHNICIAN 1. Unchanged anterior inferior corner fractures at [...] Duncan Ram M.D. Narrative 11/13/2024 6:03 PM ECG TECHNICIAN EXAMINATION: XR SPINE CERVICAL 2 OR 3 [...] Spine Thoracic 3 Vw (11/13/2024 5:08 PM ECG TECHNICIAN) Anatomical Region Laterality Modality Spine N/A Computed Radiogr aphy 11/13/2024 5:39 PM ECG TECHNICIAN Impressions 11/13/2024 6:03 PM ECG TECHNICIAN 1. Unchanged anterior inferior corner fractures at [...] Duncan Ram M.D. Narrative 11/13/2024 6:03 PM ECG TECHNICIAN EXAMINATION: XR SPINE CERVICAL 2 OR 3 [...] 2 or 3 Views (11/13/2024 5:08 PM ECG TECHNICIAN) Anatomical Region Laterality Modality Spine N/A Computed Radiogr aphy 11/13/2024 5:39 PM ECG TECHNICIAN Impressions 11/13/2024 6:03 PM ECG TECHNICIAN 1. Unchanged anterior inferior corner fractures at [...] Duncan Ram M.D. Narrative 11/13/2024 6:03 PM ECG TECHNICIAN EXAMINATION: XR SPINE CERVICAL 2 OR 3 [...] esult * (ABNORMAL) aPTT (11/13/2024 4:23 PM ECG TECHNICIAN) aPTT 24(L) 28 - 38 sec Comment: Interpretive Data Heparin therapeutic range: 66.0 - 100.0 seconds. Range based on correlation with therapeutic heparin activity range of 0.3 - 0.7 Units/mL. Current interpretive data was last revised on 2023. Blood 11/13/2024 4:23 PM ECG TECHNICIAN 11/13/2024 4:53 PM ECG TECHNICIAN Melanie Hays MD LAB BLOOD ORDERABLES Final Result Performing Organization Address [facility] Co de Phone Number [facility] Department [place] [address] * (ABNORMAL) Protime-INR (11/13/2024 4:23 PM ECG TECHNICIAN) PT 14.0(H) 9.7 - 13.0 sec INR 1.29(H) 0.90 - 1.20 [facility] Comment: Interpretive data Oral anticoagulant therapeutic ranges: Venous thromboembolism prophylaxis or treatment: 2.0-3.0 CARDIOLOGY Standard range: 2.0-3.0 High-intensity range: 2.5-3.5 Refer to indication-specific guidelines for appropriate target ranges for prosthetic heart valve replacement. Current interpretive data was last revised on 2019. Blood 11/13/2024 4:23 PM ECG TECHNICIAN 11/13/2024 4:53 PM ECG TECHNICIAN Melanie Hays MD LAB BLOOD ORDERABLES Final Result Performing Organization Address [facility] Co de Phone Number [facility] Department [place] [address] * Type and screen (11/13/2024 4:23 PM ECG TECHNICIAN) Susan, indirect Negative ABO Rh B Positive [facility] Blood 11/13/2024 4:23 PM ECG TECHNICIAN 11/13/2024 4:46 PM ECG TECHNICIAN Narrative [facility] - 11/13/2024 5:54 PM ECG TECHNICIAN Has the patient had Daratumumab or Isatuximab in the past 6 months?->Unknown Melanie Hays MD LAB BLOOD BANK TEST ORDERAB LES Final Result [facility] Department [place] [address] * Laceration Repair (11/13/2024 1:28 PM ECG TECHNICIAN) Narrative Tim Prater MD - 11/13/2024 1:28 PM ECG TECHNICIAN Tim Prater MD 11/13/2024 6:54 PM [employer] Date/Time: 11/13/2024 1:28 PM Performed by: Tim Prater MD Authorized by: Tim Prater MD RN Notified of Procedure: yes Informed consent: Risks, benefits, alternatives discussed and patient/premium service representative/guardian agrees and accepts Patient's stated name/ [...] Cervical Spine WO Contrast (11/13/2024 11:55 AM ECG TECHNICIAN) Anatomical Region Laterality Modality Spine N/A Computed Tomogra phy 11/13/2024 12:4 0 PM ECG TECHNICIAN Narrative 11/13/2024 1:02 PM ECG TECHNICIAN EXAM DESCRIPTION: CT CERVICAL SPINE WO CONTRAST [...] Miguel Whitten M.D. LC: MONICA Report ID: [id number] Reading Location: [id number] Procedure Note Kitty Whitten MD - 11/13/2024 [...] Miguel Whitten M.D. LC: MONICA Report ID: [id number] Reading Location: [place] [address] us Tim Prater MD IMG CT PROCEDURES Final Res ult * CT Facial Bones WO Contrast (11/13/2024 11:55 AM ECG TECHNICIAN) Anatomical Region Laterality Modality Head and Neck N/A Computed Tomogra phy 11/13/2024 1:01 PM ECG TECHNICIAN Narrative 11/13/2024 1:12 PM ECG TECHNICIAN EXAM DESCRIPTION: CT FACIAL BONES WO CONTRAST [...] Miguel Whitten M.D. LC: MONICA Report ID: [id number] Reading Location: [place] [address] Procedure Note Kitty Whitten MD - 11/13/2024 [...] PM - Electronically signed by Juan Miguel GuyD. LC: MONICA Report ID: [id number] Reading Location: [id number] Tim Prater MD IM CT PROCEDURES Final Res ult * CT Head WO Contrast (11/13/2024 11:55 AM ECG TECHNICIAN) Anatomical Region Laterality Modality Head and Neck N/A Computed Tomogra phy 11/13/2024 12:3 6 PM ECG TECHNICIAN Narrative 11/13/2024 12:40 PM ECG TECHNICIAN EXAM DESCRIPTION: CT HEAD WO CONTRAST REASON [...] Miguel Whitten M.D. LC: MONICA Report ID: [id number] Reading Location: [id number] Procedure Note Kitty Whitten MD - 11/13/2024 [...] Miguel Whitten M.D. LC: MONICA Report ID: [id number] Reading Location: [id number] Tim Prater MD IMG CT PROCEDURES Final Res ult * eGFR (11/13/2024 11:17 AM ECG TECHNICIAN) eGFR 86 >=60 mL/min/1. 73 m2 Comment: [...] reviewed 2021. Blood 11/13/2024 11:1 7 AM ECG TECHNICIAN 11/13/2024 11:21 AM ECG TECHNICIAN Tim Prater MD LAB BLOOD ORDERABLES Final Result [facility] ([place]) 1 [facility] [place] [address] * (ABNORMAL) Differential, auto (11/13/2024 11:17 AM ECG TECHNICIAN) Neutrophil abs 7.7(H) 1.5 - 6.5 K/cumm [...] Imm gran pct 0.5 % [facility] ([place]) Comment: Interpretive Data Percent cell count reference [...] on 2018. Blood 11/13/2024 11:1 7 AM ECG TECHNICIAN 11/13/2024 11:21 AM ECG TECHNICIAN us Tim Prater MD LAB BLOOD ORDERABLES Final Result [facility] ([place]) 1 [facility] [place] [address] * (ABNORMAL) CBC with auto differential (11/13/2024 11:17 AM ECG TECHNICIAN) WBC 10.0(H) 3.8 - 9.9 K/cumm Hgb [...] [facility] ([place]) Blood 11/13/2024 11:1 7 AM ECG TECHNICIAN 11/13/2024 11:21 AM ECG TECHNICIAN Tim Prater MD LAB BLOOD ORDERABLES Final Result [facility] ([place] 1 [facility] [place] [address] * Magnesium (11/13/2024 11:17 AM ECG TECHNICIAN) Magnesium 1.5 1.4 - 2.5 mg/dL Blood 11/13/2024 11:1 7 AM ECG TECHNICIAN 11/13/2024 11:21 AM ECG TECHNICIAN Tim Prater MD LAB BLOOD ORDERABLES Final Result Performing Organization Address [facility] de Phone Number [facility] ([place]) 1 [facility] [place] [address] * (ABNORMAL) Comprehensive metabolic panel (11/13/2024 11:17 AM ECG TECHNICIAN) Sodium 135 135 - 145 mmol/L Potassium, pl 3.4 3.3 - 4.9 mmol/L [facility] ([place]) Chloride 101 97 - 110 mmol/L [facility] ([place]) CO2 24 22 - 32 mmol/L [facility] ([place]) Anion gap 10 2 - 15 mmol/L [facility] ([place]) BUN 13 6 - 25 mg/dL [facility] ([place]) Creatinine 1.01 0.80 - 1.30 mg/dL [facility] ([place] Glucose 157 70 - 199 mg/dL [facility] ([place]) Comment: Interpretive Data Fasting glucose [...] [facility] ([place]) Blood 11/13/2024 11:1 7 AM ECG TECHNICIAN 11/13/2024 11:21 AM ECG TECHNICIAN Tim Prater MD LAB BLOOD ORDERABLES Final Result Performing Organization Address [facility] Co de Phone Number [facility] ([place]) 1 [facility] [place] [address] * ECG 12 lead (11/13/2024 10:50 AM ECG TECHNICIAN) 11/13/2024 10:5 0 AM ECG TECHNICIAN Narrative [facility] - 11/15/2024 10:54 AM ECG TECHNICIAN Vent Rate: 64 bpm RR Interval: 936 msec [place] Interval: 147 msec QRS Duration: 88 msec QT Interval: 382 msec QTC Interval: 391 msec P-R-T [place]: 44 - 52 - 72 degrees IMPRESSION: SINUS RHYTHM NORMAL ECG Electronically Signed By: Girma Donnelly MD [facility] Tim Prater MD ECG ORDERABLES Final Resul t [facility] Doctors Together [facility] from Last 3 Months Insurance [facility] HMO [facility] H[facility] Advance Directives For more information, please contact: [phone] * Full Code (Latest Code Status on File) Date Activated Date Inactivated Comments 11/14/2024 2:33 AM 11/16/2024 7:47 PM Care Teams [employer] Relationship Specialty Start Date End Date Ander Macias DO [address] [place] [address] PCP - General Family Medicine 11/17/24 Ander Macias DO [address] [place] [address] Referring Physician Family Medicine 11/16/24
== END 2025-01-18 10:40 | disposition home or self-care (01) ==
PROVIDERS: PCP Family Medicine; Visit Provider Family Medicine
DX: S12.9XXA Fracture of neck, unspecified, initial encounter (principal); M43.02 Spondylolysis, cervical region
CPT/HCPCS: 72040